=== PATIENT | male | born 1975 | race Caucasian/White ===

== ENCOUNTER 2017-04-01 06:43 | Emergency (ER) | payer OTHER ==
[2017-04-01 07:06] VITALS: BP 116/75; BMI 21.2
--- NOTE | 2017-04-01 07:18 | PDOC ---
History of Present Illness - General Chief Complaint: Substance Abuse Stated Complaint: DETOX ALCOHOL Time Seen by Provider: 04/01/17 07:17 History Source: Patient Exam Limitations: No Limitations - History of Present Illness Initial Comments: 04/01/17 08:21 Patient is a 41-year-old male with past medical history of alcohol abuse who presents to the emergency department today requesting rehabilitation. Patient states that he is sick of feeling "this way "and wants to detox. Patient states he has tried detox once before approximately 3 years ago. His last drink was last night where he drinks approximately 10 beers and/or mixed drinks. He is also complaining of some right-sided chest pain. He states that the pain has been there for 3 weeks and is worse when he takes a deep breath. The pain comes and goes. Patient admits to anxiety, tremors, diaphoresis, itching. Denies nausea, vomiting, shortness of breath, fevers, chills, recent illness and diarrhea. Admits to cocaine use. Smokes approximately 3 cigarettes a day. Denies IV drug use. Takes methadone currently. 04/01/17 08:40 Pt takes methadone through the [facility] in the [place]. Confirmed dosage of 65mg daily. He last recieved his dose of Methadone yesterday through their services. Spoke with nursing staff. Past History - Travel Traveled outside of the country in the last 30 days: No Close contact w/someone who was outside of country & ill: No - Past Medical History Allergies/Adverse Reactions: Allergies Allergy/AdvReac Type Severity Reaction Status Date / Time No Known Allergies Allergy Verified 04/01/17 12:56 Home Medications: Ambulatory Orders Citalopram Hydrobromide [Celexa -] 20 mg PO DAILY 04/01/17 Aripiprazole [Abilify -] 15 mg PO DAILY #30 tablet 04/02/17 Citalopram Hydrobromide [Celexa -] 20 mg PO DAILY #30 tablet 04/02/17 - Psycho/Social/Smoking Cessation Hx Suicidal Ideation: No Smoking History: Current every day smoker Number of Cigarettes Smoked Daily: 3 Information on smoking cessation initiated: Yes 'Breaking Loose' booklet given: 04/01/17 Hx Alcohol Use: Yes Drug/Substance Use Hx: Yes (XANAX,COCAINE) Substance Use Type: Alcohol, Cocaine Review of Systems - Review of Systems Constitutional: No: Fever, Malaise, Weakness Respiratory: No: Cough, Shortness of Breath, Wheezing Cardiac (ROS): Yes: Chest Pain (right sided). No: Lightheadedness, Palpitations , Syncope, Chest Tightness ABD/GI: No: Nausea, Vomiting *Physical Exam - Vital Signs Last Vital Signs Temp Pulse Resp BP Pulse Ox 98.5 F 71 17 116/75 100 04/01/17 07:04 04/01/17 07:04 04/01/17 07:04 04/01/17 07:04 04/01/17 07:04 - Physical Exam Comments: 04/01/17 07:53 GENERAL: Well developed, well nourished. AAOx2 person and place. In mild distress with tremors and diaphorisis. HEENT: Normocephalic, atraumatic. PERRLA, EOMI. No conjunctival pallor. Sclera are non- icteric. Moist mucous membranes. Oropharynx is clear. NECK: Supple. Full ROM. No JVD. Carotid pulses 2+ and symmetric, without bruits. No thyromegaly. No lymphadenopathy. CARDIOVASCULAR: Regular rate and rhythm. No murmurs, rubs, or gallops. Distal pulses are 2+ and symmetric. PULMONARY: No evidence of respiratory distress. Lungs clear to auscultation bilaterally. No wheezing, rales or rhonchi. ABDOMINAL: Soft. Non-tender. Non-distended. No rebound or guarding. No organomegaly. Normoactive bowel sounds. MUSCULOSKELETAL Normal range of motion at all joints. No bony deformities or tenderness. No CVA tenderness. EXTREMITIES: No cyanosis. No clubbing. No edema. No calf tenderness. SKIN: Warm and moist. Normal capillary refill. No rashes. No jaundice. NEUROLOGICAL: Alert, awake, appropriate. Cranial nerves 2-12 intact. No deficits to light touch and temperature in face, upper extremities and lower extremities. No motor deficits in the in face, upper extremities and lower extremities. Normoreflexic in the upper and lower extremities. Normal speech. Toes are down- going bilaterally. Gait is normal without ataxia. Moderately tremulous with arms extended PSYCHIATRIC: Very anxious, tremulous. Cooperative. Good eye contact. Appropriate mood and affect. ED Treatment Course - LABORATORY CBC & Chemistry Diagram: 04/01/17 08:50 04/01/17 08:50 Medical Decision Making - Medical Decision Making 04/01/17 08:02 Pt. is a 41 y/o male with PMH of alcohol abuse, who presents to the ED c/o withdrawals and is requesting rehab at this time. Patient is moderately tremulous and perspiring at this time. He states that he is very anxious. We will treat with Valium at this time. He is complaining of chest pain for three weeks with reproducable pain, less likely ACS d/t duration and provoking factors. Will still initate cardiac work up at this time. If lab work is okay and tremors have improved we will call over to [facility] for admission for detox. 1. CIWA score 2. Valium 3. CBC, CMP, mag, phosphorus, cardiac labs, UA, U tox, alcohol 4. banana bag, EKG, CXR 5. reevaluate 04/01/17 11:12 Confirmed pts home dose of methadone with his clinic. Home dose is 65mg. Will give 60mg now. Spoke with nursing staff at [facility]. Pt. reports still feeling anxious. Will give another 5mg of valium. Labs are within normal limits and pt. is hemodynamically stable. Will call [facility] to see if they have a rehab bed available. 04/01/17 11:25 [facility] has a bed available. Will discharge home at this time so pt can check himself into detox. *DC/Admit/Observation/Transfer Diagnosis at time of Disposition: Alcohol withdrawal Qualifiers: Complication of substance-induced condition: with unspecified complication Qualified Code(s): F10.239 - Alcohol dependence with withdrawal, unspecified - Discharge Dispostion Disposition: HOME Condition at time of disposition: Fair Admit: No - Referrals Referrals: Nathanael August MD [Staff Physician] - - Patient Instructions Printed Discharge Instructions: DI for Alcohol Abuse Additional Instructions: Avoid alcohol and illicit drug use. You were referred to [facility] for detox, they have a bed for you. Go there now as they are expecting you. Return to the ED if you have worsening symptoms, nausea, vomiting, or any changes in your symptoms. CIWA Score - CIWA Score Nausea/Vomitin-No Nausea/No Vomiting Muscle Tremors: 3 Anxiety: 6 Agitation: 4-Moderately Restless Paroxysmal Sweats: 4-Forehead w/Sweat Beads Orientation: 1-Uncertain about Date Tacttile Disturbances: 2-Mild Itch/Numbness/Burn Auditory Disturbances: 0-None Visual Disturbances: 0-None Headache: 0-None Present CIWA-Ar Total Score: 20
[2017-04-01] MEDS ORDERED: FOLIC ACID INJECTION - 1 MG, THIAMINE HCL 100 MG, MULTIVIT INJECTION ADULT 10 ML in SOD... IVPB ONE (07:39)
[2017-04-01] MEDS ORDERED: diazePAM CARPU-JECT 10 MG/2 ML DISP.SYRIN IVPUSH ONE ×2 (07:46→09:37)
[2017-04-01] MEDS ORDERED: diazePAM CARPU-JECT 10 MG/2 ML DISP.SYRIN ONE ×2 (08:38→10:17)
[2017-04-01] MEDS ORDERED: METHADONE HCL 10 MG TABLET PO ONE ×2 (08:41→08:58)
[2017-04-01] MEDS ORDERED: METHADONE HCL 10 MG TABLET ONE (08:57)
[2017-04-01 09:00] LABS: BASOPHIL 0.3 % (0-2.0); EOSINOPHIL 0.1 % (0-4.5); MCHC 33.1 g/dl (32.0-35.9); MEAN CELL VOLUME 90.6 fl (80-96); MEAN PLT VOLUME 9.4 fl (7.5-11.1); NEUTROPHILS 80.5 % (42.8-82.8); PLATELET COUNT 203 K/MM3 (134-434); RDW 13.6 % (11.9-15.9); WHITE BLOOD COUNT 5.9 K/mm3 (4.0-10.0)
[2017-04-01 09:28] LABS: URINE APPEARANCE CLEAR; URINE BILIRUBIN NEGATIVE (NEGATIVE); URINE BLOOD NEGATIVE (NEGATIVE); URINE COLOR LTYELLOW; URINE GLUCOSE (UA) NEGATIVE (NEGATIVE); URINE KETONE NEGATIVE (NEGATIVE); URINE LEUK ESTERASE NEGATIVE (NEGATIVE); URINE NITRITE NEGATIVE (NEGATIVE); URINE PROTEIN NEGATIVE (NEGATIVE); URINE UROBILINOGEN NEGATIVE mg/dL (0.2-1.0)
[2017-04-01 09:42] LABS: ALBUMIN 3.9 g/dl (3.4-5.0); ANION GAP 6 (8-16); BILIRUBIN,TOTAL 0.4 mg/dL (0.2-1.0); CALCIUM 9.1 mg/dL (8.5-10.1); CO2 31 mmol/L (21-32); CREATININE 0.7 mg/dL (0.7-1.3); GLUCOSE,RANDOM 110 mg/dL (74-106); PHOSPHOROUS 2.2 mg/dL (2.5-4.9); SGOT/AST 35 U/L (15-37); SGPT/ALT 28 U/L (12-78); TOT PROT 6.8 g/dl (6.4-8.2)
[2017-04-01 09:45] LABS: ALK PHOS 72 U/L (45-117); CPK 379 IU/L (39-308); TROPONIN I < 0.02 ng/ml (0.00-0.05)
--- NOTE | 2017-04-01 09:54 | PDOC ---
*Physical Exam - Vital Signs Last Vital Signs Temp Pulse Resp BP Pulse Ox 98.5 F 71 17 116/75 100 04/01/17 07:04 04/01/17 07:04 04/01/17 07:04 04/01/17 07:04 04/01/17 07:04 ED Treatment Course - LABORATORY CBC & Chemistry Diagram: 04/01/17 08:50 04/01/17 08:50 - ADDITIONAL ORDERS Additional order review: Laboratory Results 04/01/17 04/01/17 04/01/17 09:15 08:50 08:50 Sodium 139 Potassium 4.4 Chloride 102 Carbon Dioxide 31 Anion Gap 6 L BUN 8 Creatinine 0.7 Creat Clearance w eGFR > 60 Random Glucose 110 H Calcium 9.1 Phosphorus 2.2 L Magnesium 2.0 Total Bilirubin 0.4 AST 35 ALT 28 Alkaline Phosphatase 72 Creatine Kinase 379 H Creatine Kinase Index 0.4 CK-MB (CK-2) 1.707 Troponin I < 0.02 Total Protein 6.8 Albumin 3.9 Urine Color Ltyellow Urine Appearance Clear Urine pH 7.0 Urine Protein Negative Urine Glucose (UA) Negative Urine Ketones Negative Urine Blood Negative Urine Nitrite Negative Urine Bilirubin Negative Urine Urobilinogen Negative Ur Leukocyte Esterase Negative Alcohol, Quantitative < 5.0 04/01/17 08:50 RBC 4.47 MCV 90.6 MCHC 33.1 RDW 13.6 MPV 9.4 Neutrophils % 80.5 Lymphocytes % 13.0 Monocytes % 6.1 Eosinophils % 0.1 Basophils % 0.3 - Medications Given in the ED: ED Medications Discontinued Medications Generic Name Dose Route Start Last Admin Trade Name Zaneq PRN Reason Stop Dose Admin Diazepam 5 mg 04/01/17 07:46 04/01/17 08:53 Valium Injection - IVPUSH 04/01/17 07:47 5 mg ONCE ONE Administration Methadone HCl 65 mg 04/01/17 08:41 04/01/17 09:01 Dolophine - PO 04/01/17 08:42 Not Given ONCE ONE Methadone HCl 60 mg 04/01/17 08:58 04/01/17 09:01 Dolophine - PO 04/01/17 08:59 60 mg ONCE ONE Administration Medical Decision Making - Medical Decision Making 04/01/17 09:51 Patient seen and evaluated with the nurse practitioner. I agree with the overall evaluation, assessment, and management with the following summary of visit: 41-year-old male with history of alcohol dependence, on methadone maintenance presents with anxiety and tremors and symptoms of withdrawal, last EtOH intake was last night. No seizures. Tremulous, anxious seated in stretcher, vitals otherwise noted without tachycardia or hypertension Normal mental status 41-year-old male with alcohol withdrawal, hemodynamically stable. Requesting detox. We'll stabilize here with IV benzo Check labs, EKG Reassess, attempted transfer to rehabilitation/detox. *DC/Admit/Observation/Transfer Diagnosis at time of Disposition: Alcohol withdrawal syndrome Qualifiers: Complication of substance-induced condition: with unspecified complication Qualified Code(s): F10.239 - Alcohol dependence with withdrawal, unspecified - Discharge Dispostion Condition at time of disposition: Fair
[2017-04-01] MEDS ORDERED: NAPH,MB-DB/K PH,MBDB POWDER PACKET PO ONE (10:13)
[2017-04-01 10:56] VITALS: PULSE 78; TEMP 98.2
--- NOTE | 2017-04-01 17:26 | EKG ---
Test Reason : Blood Pressure : / mmHG Vent. Rate : 058 BPM Atrial Rate : 058 BPM P-R Int : 138 ms QRS Dur : 086 ms QT Int : 422 ms P-R-T Axes : 068 082 078 degrees QTc Int : 414 ms SINUS BRADYCARDIA NONSPECIFIC ST AND T WAVE ABNORMALITY NO PREVIOUS ECGS AVAILABLE REPEAT EKG IF CLINICALLY INDICATED Confirmed by CHARANJIT SHULTZ MD ([id number]) on 04/01/2017 5:26:42 PM Referred By: Confirmed By:CHARANJIT SHULTZ MD
[2017-04-02 20:09] LABS: URINE MARIJUANA THC POSITIVE ng/ml (CUTOFF=50)
== END 2017-04-01 10:56 | disposition home or self-care (01) ==
LOC: JER 06:43
PROC: 3E033NZ Introduction of Analgesics, Hypnotics, Sedatives into Peripheral Vein, Percutaneous Approach (ICD-10-PCS; principal; 2017-04-01)
PROC: 3E033GC Introduction of Other Therapeutic Substance into Peripheral Vein, Percutaneous Approach (ICD-10-PCS; 2017-04-01)
DX: F10.239 Alcohol dependence with withdrawal, unspecified (principal); F17.210 Nicotine dependence, cigarettes, uncomplicated
CPT/HCPCS: 36415; 71010-TC; 80053; 80307; 81003; 82553; 83735; 84100; 84484; 85025; 93005; 93010; 96365; 96375; 96376; 99282-25

== ENCOUNTER 2017-04-01 12:10 | Inpatient (IN) | payer OTHER ==
--- NOTE | 2017-04-01 15:47 | HP ---
CIWA Score - CIWA Score Nausea/Vomitin-Mild Nausea/No Vomiting Muscle Tremors: 4-Moderate,w/Arms Extend Anxiety: 3 Agitation: 4-Moderately Restless Paroxysmal Sweats: 3 Orientation: 0-Oriented Tacttile Disturbances: 0-None Auditory Disturbances: 0-None Visual Disturbances: 0-None Headache: 0-None Present CIWA-Ar Total Score: 15 Admission ROS BHS - HPI Chief Complaint: I am here to detox. Allergies/Adverse Reactions: Allergies Allergy/AdvReac Type Severity Reaction Status Date / Time No Known Allergies Allergy Verified 04/01/17 12:56 History of Present Illness: pt is a 41yr old male with a history of alcohol and benzodiazapine dependence seeking detox for treatment. Exam Limitations: No Limitations - Ebola screening Have you traveled outside of the country in the last 21 days: No Have you had contact with anyone from an Ebola affected area: No Have you been sick,other than usual withdrawal symptoms: No Do you have a fever: No - Review of Systems Constitutional: Chills, Diaphoresis, Loss of Appetite, Night Sweats, Changes in sleep EENT: reports: Tearing, Nose Congestion Respiratory: reports: No Symptoms reported Cardiac: reports: Syncope GI: reports: Nausea : reports: No Symptoms Reported Musculoskeletal: reports: Joint Pain, Muscle Pain Integumentary: reports: Flushing, Sweating Endocrine: reports: Excessive Sweating, Flushing, Intolerance to Cold, Intolerance to Heat Hematology: reports: No Symptoms Reported Psychiatric: reports: Judgement Intact, Mood/Affect Appropiate, Orientated x3, Agitated, Anxious Other Systems: Reviewed and Negative Patient History - Patient Medical History Hx Anemia: No Hx Asthma: No Hx Chronic Obstructive Pulmonary Disease (COPD): No Hx Cancer: No Hx Cardiac Disorders: No Hx Congestive Heart Failure: No Hx Hypertension: No Hx Hypercholesterolemia: No Hx Pacemaker: No HX Cerebrovascular Accident: No Hx Seizures: Yes (etoh and drug related. last 1 month ago) Hx Dementia: No Hx Diabetes: No Hx Gastrointestinal Disorders: No Hx Liver Disease: No Hx Genitourinary Disorders: No Hx Sexually Transmitted Disorders: No Hx Renal Disease (ESRD): No Hx Thyroid Disease: No Hx Human Immunodeficiency Virus (HIV): No (negative) Hx Hepatitis C: Yes (treatment recieved 10yrs ago) Hx Depression: Yes Hx Suicide Attempt: Yes (tried to hang himself 20 yrs ago./ denies any S/H ideation today) Hx Bipolar Disorder: No Hx Schizophrenia: No - Patient Surgical History Past Surgical History: Yes Hx Abdominal Surgery: Yes (liver biopsy 10 yrs ago.) Anesthesia Reaction: No - PPD History Previous Implant?: Yes Documented Results: Negative w/o proof Implanted On Prior [facility] Admission?: No PPD to be Administered?: Yes - Reproductive History Patient is a Female of Child Bearing Age (11 -55 yrs old): No - Smoking Cessation Smoking history: Current every day smoker Have you smoked in the past 12 months: Yes Aproximately how many cigarettes per day: 5 Hx Chewing Tobacco Use: No Initiated information on smoking cessation: Yes 'Breaking Loose' booklet given: 04/01/17 - Substance & Tx. History Hx Alcohol Use: Yes Hx Substance Use: Yes Substance Use Type: Alcohol, Cocaine, Marijuana, Tranquilizers Hx Substance Use Treatment: Yes (last detox [facility] 2month ago. ) - Substances Abused Alcohol Route: Oral Frequency: Daily Amount used: 10-20 beers Age of first use: 20 Date of Last Use: 03/31/17 Alprazolam (Xanax) Route: Oral Frequency: Daily Amount used: 4mg Age of first use: 35 Date of Last Use: 03/29/17 Marijuana/Hashish Route: Smoking Frequency: Daily Amount used: 1 joint Age of first use: 18 Date of Last Use: 03/25/17 Cocaine Route: Injection Frequency: Daily Amount used: $50-100 Age of first use: 21 Date of Last Use: 03/29/17 Family Disease History - Family Disease History Family History: Denies Admission Physical Exam [facility] - Vital Signs Vital Signs: Vital Signs - 24 hr 04/01/17 12:32 Temperature 98.5 F Pulse Rate 75 Respiratory 18 Rate Blood Pressure 122/78 - Physical General Appearance: Yes: Mild Distress, Moderate Distress, Tremorous, Irritable , Sweating, Anxious HEENTM: Yes: Hearing grossly Normal, Nasal Congestion, Rhinorrhea Respiratory: Yes: Lungs Clear, Normal Breath Sounds Neck: Yes: No masses,lesions,Nodules Breast: Yes: Within Normal Limits Cardiology: Yes: Regular Rhythm, Regular Rate, S1, S2 Abdominal: Yes: Normal Bowel Sounds, Non Tender, Soft Genitourinary: Yes: Within Normal Limits Back: Yes: Normal Inspection Musculoskeletal: Yes: full range of Motion, Back pain Extremities: Yes: Normal Capillary Refill, Normal Inspection, Tremors Neurological: Yes: Fully Oriented, Alert, Normal Response Integumentary: Yes: Normal Color, Diaphoresis Lymphatic: Yes: Within Normal Limits - Diagnostic (1) Alcohol dependence with uncomplicated withdrawal Current Visit: Yes Status: Chronic (2) Sedative, hypnotic or anxiolytic dependence with withdrawal, uncomplicated Current Visit: Yes Status: Chronic (3) Methadone maintenance therapy patient Current Visit: Yes Status: Chronic (4) Nicotine dependence Current Visit: Yes Status: Chronic Qualifiers: Nicotine product type: cigarettes Substance use status: uncomplicated Qualified Code(s): F17.210 - Nicotine dependence, cigarettes, uncomplicated Cleared for Admission [facility] - Detox or Rehab [facility] Level of Care: Medically Managed Detox Regimen/Protocol: Valium [facility] Breath Alcohol Content Breath Alcohol Content: 0 Urine Drug Screen - Results Drug Screen Negative: No Urine Drug Screen Results: THC-Marijuana, REHANA-Cocaine, BZO-Benzodiazepines, MTD- Methadone
[2017-04-01] MEDS ORDERED: diazePAM 5 MG TABLET PO ONE (15:48)
[2017-04-01] MEDS ORDERED: guaiFENesin/D-METHORPHAN HB 10 ML UNIT-DOSE CUPS PO PRN (15:48)
[2017-04-01] MEDS ORDERED: MAGNESIUM HYDROX 2400MG/30ML ORAL SUSPENSION 30 ML CUP PO PRN (15:48)
[2017-04-01] MEDS ORDERED: MENTHOL/PHENOL 1 EACH UD MM PRN (15:48)
[2017-04-01] MEDS ORDERED: MAG HYDROX/AL HYDROX/SIMETH 30 ML UNIT-DOSE CUP PO PRN (15:48)
[2017-04-01] MEDS ORDERED: LOPERAMIDE HCL 2 MG CAPSULE PO PRN (15:48)
[2017-04-01] MEDS ORDERED: MAGNESIUM CITRATE 300 ML BOTTLE PO PRN (15:48)
[2017-04-01] MEDS ORDERED: ACETAMINOPHEN 325 MG TABLET (FP) PO PRN (15:48)
[2017-04-01] MEDS ORDERED: P-EPHED 60MG/TRIPROLIDI 2.5MG TABLET PO PRN (15:48)
[2017-04-01] MEDS ORDERED: IBUPROFEN 400 MG TABLET (FP) PO PRN (15:48)
[2017-04-01] MEDS: diazePAM 5 MG TABLET PO SCH ×2 (17:09→22:30)
[2017-04-01] MEDS: hydrOXYzine PAMOATE 50 MG CAPSULE (FP) PO PRN (19:16)
[2017-04-01 22:18] LABS: URINE APPEARANCE CLEAR; URINE BILIRUBIN NEGATIVE (NEGATIVE); URINE BLOOD 1+ (NEGATIVE); URINE COLOR YELLOW; URINE GLUCOSE (UA) NEGATIVE (NEGATIVE); URINE KETONE NEGATIVE (NEGATIVE); URINE LEUK ESTERASE NEGATIVE (NEGATIVE); URINE NITRITE NEGATIVE (NEGATIVE); URINE PROTEIN NEGATIVE (NEGATIVE); URINE UROBILINOGEN NEGATIVE mg/dL (0.2-1.0)
[2017-04-01] MEDS: THIAMINE HCL 100 MG TABLET (FP) PO SCH (22:30)
[2017-04-01] MEDS: diphenhydrAMINE HCL 50 MG CAPSULE PO PRN (22:30)
[2017-04-01 23:00] LABS: URINE MUCUS RARE; URINE RBC <1 /hpf (0-3); URINE WBC 1 /hpf (3-5)
[2017-04-02] MEDS: diazePAM 5 MG TABLET PO PRN ×3 (04:16→16:51)
[2017-04-02] MEDS: diazePAM 5 MG TABLET PO SCH ×3 (05:20→22:25)
[2017-04-02] MEDS ORDERED: METHADONE HCL 40 MG DISPERSABLE TABLET PO SCH (07:30)
[2017-04-02] MEDS ORDERED: METHADONE HCL 10 MG TABLET ONE (07:35)
[2017-04-02] MEDS ORDERED: METHADONE HCL 5 MG TABLET ONE (07:36)
[2017-04-02] MEDS ORDERED: METHADONE HCL 40 MG DISPERSABLE TABLET ONE (07:36)
[2017-04-02] MEDS: METHADONE 40 MG, METHADONE 20 MG, METHADONE 5 MG PO SCH (07:37)
[2017-04-02 09:50] LABS: MCH 29.9 pg (25.7-33.7); MCHC 32.7 g/dl (32.0-35.9); MEAN CELL VOLUME 91.3 fl (80-96); MEAN PLT VOLUME 10.1 fl (7.5-11.1); PLATELET COUNT 191 K/MM3 (134-434); RDW 14.4 % (11.9-15.9); WHITE BLOOD COUNT 4.7 K/mm3 (4.0-10.0)
[2017-04-02] MEDS: PRENATAL VITAMINS W/ FOLIC ACID TABLET (FP) PO SCH (10:20)
[2017-04-02] MEDS: NICOTINE POLACRILEX 4 MG GUM BUC PRN ×2 (10:20→22:27)
[2017-04-02] MEDS: NICOTINE 21 MG/24 HOURS TOPICAL PATCH TD SCH (10:21)
--- NOTE | 2017-04-02 10:21 | PN ---
[facility] CIWA - CIWA Score Nausea/Vomitin-No Nausea/No Vomiting Muscle Tremors: 4-Moderate,w/Arms Extend Anxiety: 4-Mod. Anxious/Guarded Agitation: 4-Moderately Restless Paroxysmal Sweats: 1-Minimal Palms Moist Orientation: 0-Oriented Tacttile Disturbances: 3-Moderate Itch/Numb/Burn Auditory Disturbances: 0-None Visual Disturbances: 0-None Headache: 0-None Present CIWA-Ar Total Score: 16 S Progress Note (SOAP) Subjective: ANXIETY,TREMORS,SWEATS,INTERMITTENT SLEEP. Objective: 04/02/17 10:20 Vital Signs Temperature 98.1 F 04/02/17 09:31 Pulse Rate 118 H 04/02/17 09:31 Respiratory Rate 18 04/02/17 09:31 Blood Pressure 141/84 04/02/17 09:31 O2 Sat by Pulse Oximetry (%) Laboratory Last Values WBC 4.7 K/mm3 (4.0-10.0) 04/02/17 07:00 RBC 4.47 M/mm3 (4.00-5.60) 04/02/17 07:00 Hgb 13.3 GM/dL (11.7-16.9) 04/02/17 07:00 Hct 40.8 % (35.4-49) 04/02/17 07:00 MCV 91.3 fl (80-96) 04/02/17 07:00 MCH 29.9 pg (25.7-33.7) 04/02/17 07:00 MCHC 32.7 g/dl (32.0-35.9) 04/02/17 07:00 RDW 14.4 % (11.9-15.9) 04/02/17 07:00 Plt Count 191 K/MM3 (134-434) 04/02/17 07:00 MPV 10.1 fl (7.5-11.1) 04/02/17 07:00 Urine Color Yellow 04/01/17 21:57 Urine Appearance Clear 04/01/17 21:57 Urine pH 6.0 (5.0-8.0) 04/01/17 21:57 Ur Specific [place]vin 1.020 (1.005-1.025) 04/01/17 21:57 Urine Protein Negative (NEGATIVE) 04/01/17 21:57 Urine Glucose (UA) Negative (NEGATIVE) 04/01/17 21:57 Urine Ketones Negative (NEGATIVE) 04/01/17 21:57 Urine Blood 1+ (NEGATIVE) H 04/01/17 21:57 Urine Nitrite Negative (NEGATIVE) 04/01/17 21:57 Urine Bilirubin Negative (NEGATIVE) 04/01/17 21:57 Urine Urobilinogen Negative mg/dL (0.2-1.0) 04/01/17 21:57 Ur Leukocyte Esterase Negative (NEGATIVE) 04/01/17 21:57 Urine RBC <1 /hpf (0-3) 04/01/17 21:57 Urine WBC 1 /hpf (3-5) 04/01/17 21:57 Ur Epithelial Cells Rare /hpf (FEW) 04/01/17 21:57 Urine Mucus Rare 04/01/17 21:57 OTHER LAB RESULTS PENDING Assessment: 04/02/17 10:21 WITHDRAWAL SX Plan: CONTINUE DETOX
--- NOTE | 2017-04-02 10:46 | EKG ---
Test Reason : Blood Pressure : / mmHG Vent. Rate : 073 BPM Atrial Rate : 073 BPM P-R Int : 146 ms QRS Dur : 086 ms QT Int : 418 ms P-R-T Axes : 063 072 065 degrees QTc Int : 460 ms NORMAL SINUS RHYTHM NORMAL ECG WHEN COMPARED WITH ECG OF 01-APR-2017 07:58, QT HAS LENGTHENED Confirmed by CEZAR SANTIAGO, BENJAMIN ([id number]) on 04/02/2017 10:46:32 AM Referred By: Confirmed By:BENJAMIN ROBB MD
[2017-04-02 11:12] LABS: ALBUMIN 3.4 g/dl (3.4-5.0); ALK PHOS 59 U/L (45-117); ANION GAP 7 (8-16); BILIRUBIN,TOTAL 0.3 mg/dL (0.2-1.0); CALCIUM 9.1 mg/dL (8.5-10.1); CO2 32 mmol/L (21-32); CREATININE 0.7 mg/dL (0.7-1.3); GLUCOSE,RANDOM 75 mg/dL (74-106); SGOT/AST 28 U/L (15-37); SGPT/ALT 28 U/L (12-78); TOT PROT 5.8 g/dl (6.4-8.2)
[2017-04-02] MEDS: hydrOXYzine PAMOATE 50 MG CAPSULE (FP) PO PRN ×2 (15:29→20:54)
--- NOTE | 2017-04-02 16:08 | CONSULT ---
[facility] Psychiatric Consult - Data Date of interview: 04/02/17 Admission source: [facility] Identifying data: Readmission to [facility] for this 41 y/o male seeking detox treatment on for alcohol,cocaine,xanax and marihuana dependence.Patient is single,a father of one,domiciled ([facility] setting),unemployed and supported on welfare. Substance Abuse History: Patient contfirms this report as an accurate account of his adictions. Smoking Cessation. Smoking history: Current every day smoker. Have you smoked in the past 12 months: Yes. Aproximately how many cigarettes per day: 5. Hx Chewing Tobacco Use: No. Initiated information on smoking cessation: Yes. 'Breaking Loose' booklet given: 04/01/17. - Substance & Tx. History. Hx Alcohol Use: Yes. Hx Substance Use: Yes. Substance Use Type : Alcohol, Cocaine, Marijuana, Tranquilizers. Hx Substance Use Treatment: Yes ( last detox [facility] 2month ago. ). - Substances Abused. Alcohol. Route: Oral. Frequency: Daily. Amount used: 10-20 beers. Age of first use: 20. Date of Last Use: 03/31/17. Alprazolam (Xanax). Route: Oral. Frequency: Daily. Amount used: 4mg. Age of first use: 35. Date of Last Use: 03/29/17. * * Marijuana/Hashish. Route: Smoking. Frequency: Daily. Amount used: 1 joint. Age of first use: 18. Date of Last Use: 03/25/17. Cocaine. Route: Injection. Frequency: Daily. Amount used: $50-100. Age of first use: 21. Date of Last Use: 03/29/17 Medical History: Hepatitis C and a remote history of withdrawal-related seizures. Psychiatric History: Patient admits to " no less than five " psychiatric hospitalizations.Known to [facility] and [facility]Diagnosed with MDD.Mr Vines indicates follow up at [facility] (MMTP = 65 mg of methadone daily).Maintenance medications consist of celexa 20 mg/day + abilify 15 mg/day.Reportedly taken three days ago.Patient reports a history of suicide attempt via hanging (20 years ago). Physical/Sexual Abuse/Trauma History: No reported history of abuse. Additional Comment: Urine Drug Screen Results: THC-Marijuana, REHANA-Cocaine, BZO- Benzodiazepines, MTD-Methadone.Noted. Mental Status Exam - Mental Status Exam Alert and Oriented to: Time, Place, Person Cognitive Function: Good Patient Appearance: Unkempt, Disheveled Mood: Nervous, Withdrawn, Anxious Affect: Mood Congruent Patient Behavior: Fatigued, Appropriate, Cooperative Speech Pattern: Clear Voice Loudness: Normal Thought Process: Intact, Goal Oriented Thought Disorder: Not Present Hallucinations: Denies Suicidal Ideation: Denies Homicidal Ideation: Denies Insight/Judgement: Poor Sleep: Poorly, Difficulty falling asleep Appetite: Good Muscle strength/Tone: Normal Gait/Station: Normal Psychiatric Findings - Problem List ([place] 1, 2,3) (1) Alcohol dependence with uncomplicated withdrawal Status: Acute (2) Nicotine dependence Status: Chronic Qualifiers: Nicotine product type: cigarettes Substance use status: in withdrawal Qualified Code(s): F17.213 - Nicotine dependence, cigarettes, with withdrawal (3) Sedative, hypnotic or anxiolytic dependence with withdrawal, uncomplicated Status: Acute (4) Opioid dependence on agonist therapy Status: Chronic (5) Substance induced mood disorder Status: Acute (6) MDD (major depressive disorder) Status: Chronic Qualifiers: Major depression recurrence: recurrent Active/Remission status: remission status unspecified Qualified Code(s): F33.9 - Major depressive disorder, recurrent, unspecified (7) Insomnia Status: Acute Qualifiers: Insomnia type: unspecified Qualified Code(s): G47.00 - Insomnia, unspecified - Initial Treatment Plan Initial Treatment Plan: Psychoeducation.Detoxification.Medications : celexa 20 mg po daily + abilify 15 mg po hs.Side effects/benefits are discussed with the apteint.He agrees with this plan of care.Observation.
[2017-04-02] MEDS: ARIPiprazole 15 MG TABLET PO SCH (22:25)
[2017-04-02] MEDS: THIAMINE HCL 100 MG TABLET (FP) PO SCH (22:25)
[2017-04-03] MEDS: diazePAM 5 MG TABLET PO PRN ×4 (02:47→17:33)
[2017-04-03] MEDS ORDERED: METHADONE HCL 10 MG TABLET ONE (04:55)
[2017-04-03] MEDS ORDERED: METHADONE HCL 5 MG TABLET ONE (04:56)
[2017-04-03] MEDS ORDERED: METHADONE HCL 40 MG DISPERSABLE TABLET ONE (04:56)
[2017-04-03] MEDS: METHADONE 40 MG, METHADONE 20 MG, METHADONE 5 MG PO SCH (05:46)
[2017-04-03] MEDS: NICOTINE POLACRILEX 4 MG GUM BUC PRN (07:12)
[2017-04-03] MEDS: diazePAM 5 MG TABLET PO SCH ×2 (10:25→22:37)
[2017-04-03] MEDS: NICOTINE 21 MG/24 HOURS TOPICAL PATCH TD SCH (10:25)
[2017-04-03] MEDS: PRENATAL VITAMINS W/ FOLIC ACID TABLET (FP) PO SCH (10:25)
[2017-04-03] MEDS: CITALOPRAM HYDROBROMIDE 20 MG TABLET (FP) PO SCH (10:25)
--- NOTE | 2017-04-03 10:57 | PN ---
[facility] CIWA - CIWA Score Nausea/Vomitin-No Nausea/No Vomiting Muscle Tremors: 4-Moderate,w/Arms Extend Anxiety: 4-Mod. Anxious/Guarded Agitation: 4-Moderately Restless Paroxysmal Sweats: 3 Orientation: 0-Oriented Tacttile Disturbances: 3-Moderate Itch/Numb/Burn Auditory Disturbances: 0-None Visual Disturbances: 0-None Headache: 0-None Present CIWA-Ar Total Score: 18 S Progress Note (SOAP) Subjective: ANXIETY,IRRITABILITY,DRENCHING SWEATS,INTERMITTENT SLEEP. Objective: 04/03/17 10:57 Vital Signs Temperature 98.0 F 04/03/17 09:39 Pulse Rate 80 04/03/17 09:39 Respiratory Rate 18 04/03/17 09:39 Blood Pressure 117/78 04/03/17 09:39 O2 Sat by Pulse Oximetry (%) Laboratory Last Values WBC 4.7 K/mm3 (4.0-10.0) 04/02/17 07:00 RBC 4.47 M/mm3 (4.00-5.60) 04/02/17 07:00 Hgb 13.3 GM/dL (11.7-16.9) 04/02/17 07:00 Hct 40.8 % (35.4-49) 04/02/17 07:00 MCV 91.3 fl (80-96) 04/02/17 07:00 MCH 29.9 pg (25.7-33.7) 04/02/17 07:00 MCHC 32.7 g/dl (32.0-35.9) 04/02/17 07:00 RDW 14.4 % (11.9-15.9) 04/02/17 07:00 Plt Count 191 K/MM3 (134-434) 04/02/17 07:00 MPV 10.1 fl (7.5-11.1) 04/02/17 07:00 Sodium 144 mmol/L (136-145) 04/02/17 07:00 Potassium 4.3 mmol/L (3.5-5.1) 04/02/17 07:00 Chloride 105 mmol/L (98-107) 04/02/17 07:00 Carbon Dioxide 32 mmol/L (21-32) 04/02/17 07:00 Anion Gap 7 (8-16) L 04/02/17 07:00 BUN 11 mg/dL (7-18) D 04/02/17 07:00 Creatinine 0.7 mg/dL (0.7-1.3) 04/02/17 07:00 Creat Clearance w eGFR > 60 (>60) 04/02/17 07:00 Random Glucose 75 mg/dL (74-106) D 04/02/17 07:00 Calcium 9.1 mg/dL (8.5-10.1) 04/02/17 07:00 Total Bilirubin 0.3 mg/dL (0.2-1.0) D 04/02/17 07:00 AST 28 U/L (15-37) 04/02/17 07:00 ALT 28 U/L (12-78) 04/02/17 07:00 Alkaline Phosphatase 59 U/L (45-117) 04/02/17 07:00 Total Protein 5.8 g/dl (6.4-8.2) L 04/02/17 07:00 Albumin 3.4 g/dl (3.4-5.0) 04/02/17 07:00 Urine Color Yellow 04/01/17 21:57 Urine Appearance Clear 04/01/17 21:57 Urine pH 6.0 (5.0-8.0) 04/01/17 21:57 Ur Specific [place] 1.020 (1.005-1.025) 04/01/17 21:57 Urine Protein Negative (NEGATIVE) 04/01/17 21:57 Urine Glucose (UA) Negative (NEGATIVE) 04/01/17 21:57 Urine Ketones Negative (NEGATIVE) 04/01/17 21:57 Urine Blood 1+ (NEGATIVE) H 04/01/17 21:57 Urine Nitrite Negative (NEGATIVE) 04/01/17 21:57 Urine Bilirubin Negative (NEGATIVE) 04/01/17 21:57 Urine Urobilinogen Negative mg/dL (0.2-1.0) 04/01/17 21:57 Ur Leukocyte Esterase Negative (NEGATIVE) 04/01/17 21:57 Urine RBC <1 /hpf (0-3) 04/01/17 21:57 Urine WBC 1 /hpf (3-5) 04/01/17 21:57 Ur Epithelial Cells Rare /hpf (FEW) 04/01/17 21:57 Urine Mucus Rare 04/01/17 21:57 RPR Titer Nonreactive (NONREACTIVE) 04/02/17 07:00 Assessment: 04/03/17 10:57 WITHDRAWAL SX Plan: CONTINUE DETOX
[2017-04-03] MEDS: THIAMINE HCL 100 MG TABLET (FP) PO SCH (22:35)
[2017-04-03] MEDS: ARIPiprazole 15 MG TABLET PO SCH (22:38)
[2017-04-04] MEDS ORDERED: METHADONE HCL 10 MG TABLET ONE (05:21)
[2017-04-04] MEDS ORDERED: METHADONE HCL 40 MG DISPERSABLE TABLET ONE (05:22)
[2017-04-04] MEDS ORDERED: METHADONE HCL 5 MG TABLET ONE (05:22)
[2017-04-04] MEDS: METHADONE 40 MG, METHADONE 20 MG, METHADONE 5 MG PO SCH (05:39)
[2017-04-04] MEDS: diazePAM 5 MG TABLET PO PRN ×2 (05:40→14:44)
[2017-04-04] MEDS: NICOTINE 21 MG/24 HOURS TOPICAL PATCH TD SCH (10:25)
[2017-04-04] MEDS: diazePAM 5 MG TABLET PO SCH ×2 (10:26→22:35)
[2017-04-04] MEDS: PRENATAL VITAMINS W/ FOLIC ACID TABLET (FP) PO SCH (10:26)
[2017-04-04] MEDS: CITALOPRAM HYDROBROMIDE 20 MG TABLET (FP) PO SCH (10:26)
[2017-04-04] MEDS: NICOTINE POLACRILEX 4 MG GUM BUC PRN ×2 (10:28→14:44)
--- NOTE | 2017-04-04 11:13 | PN ---
[facility] Progress Note (SOAP) Subjective: ANXIETY, IRRITABILITY,RESTLESSNESS, INTERMITTENT SLEEP. Objective: 04/04/17 11:12 Vital Signs Temperature 98.4 F 04/04/17 10:25 Pulse Rate 76 04/04/17 10:25 Respiratory Rate 18 04/04/17 10:25 Blood Pressure 126/74 04/04/17 10:25 O2 Sat by Pulse Oximetry (%) Laboratory Last Values WBC 4.7 K/mm3 (4.0-10.0) 04/02/17 07:00 RBC 4.47 M/mm3 (4.00-5.60) 04/02/17 07:00 Hgb 13.3 GM/dL (11.7-16.9) 04/02/17 07:00 Hct 40.8 % (35.4-49) 04/02/17 07:00 MCV 91.3 fl (80-96) 04/02/17 07:00 MCH 29.9 pg (25.7-33.7) 04/02/17 07:00 MCHC 32.7 g/dl (32.0-35.9) 04/02/17 07:00 RDW 14.4 % (11.9-15.9) 04/02/17 07:00 Plt Count 191 K/MM3 (134-434) 04/02/17 07:00 MPV 10.1 fl (7.5-11.1) 04/02/17 07:00 Sodium 144 mmol/L (136-145) 04/02/17 07:00 Potassium 4.3 mmol/L (3.5-5.1) 04/02/17 07:00 Chloride 105 mmol/L (98-107) 04/02/17 07:00 Carbon Dioxide 32 mmol/L (21-32) 04/02/17 07:00 Anion Gap 7 (8-16) L 04/02/17 07:00 BUN 11 mg/dL (7-18) D 04/02/17 07:00 Creatinine 0.7 mg/dL (0.7-1.3) 04/02/17 07:00 Creat Clearance w eGFR > 60 (>60) 04/02/17 07:00 Random Glucose 75 mg/dL (74-106) D 04/02/17 07:00 Calcium 9.1 mg/dL (8.5-10.1) 04/02/17 07:00 Total Bilirubin 0.3 mg/dL (0.2-1.0) D 04/02/17 07:00 AST 28 U/L (15-37) 04/02/17 07:00 ALT 28 U/L (12-78) 04/02/17 07:00 Alkaline Phosphatase 59 U/L (45-117) 04/02/17 07:00 Total Protein 5.8 g/dl (6.4-8.2) L 04/02/17 07:00 Albumin 3.4 g/dl (3.4-5.0) 04/02/17 07:00 Urine Color Yellow 04/01/17 21:57 Urine Appearance Clear 04/01/17 21:57 Urine pH 6.0 (5.0-8.0) 04/01/17 21:57 Ur Specific [place] 1.020 (1.005-1.025) 04/01/17 21:57 Urine Protein Negative (NEGATIVE) 04/01/17 21:57 Urine Glucose (UA) Negative (NEGATIVE) 04/01/17 21:57 Urine Ketones Negative (NEGATIVE) 04/01/17 21:57 Urine Blood 1+ (NEGATIVE) H 04/01/17 21:57 Urine Nitrite Negative (NEGATIVE) 04/01/17 21:57 Urine Bilirubin Negative (NEGATIVE) 04/01/17 21:57 Urine Urobilinogen Negative mg/dL (0.2-1.0) 04/01/17 21:57 Ur Leukocyte Esterase Negative (NEGATIVE) 04/01/17 21:57 Urine RBC <1 /hpf (0-3) 04/01/17 21:57 Urine WBC 1 /hpf (3-5) 04/01/17 21:57 Ur Epithelial Cells Rare /hpf (FEW) 04/01/17 21:57 Urine Mucus Rare 04/01/17 21:57 RPR Titer Nonreactive (NONREACTIVE) 04/02/17 07:00 Assessment: 04/04/17 11:12 WITHDRAWAL SX Plan: CONTINUE DETOX
[2017-04-04] MEDS: ARIPiprazole 15 MG TABLET PO SCH (22:35)
[2017-04-04] MEDS: THIAMINE HCL 100 MG TABLET (FP) PO SCH (22:35)
[2017-04-04] MEDS: diphenhydrAMINE HCL 50 MG CAPSULE PO PRN (22:35)
[2017-04-05] MEDS ORDERED: METHADONE HCL 5 MG TABLET ONE (04:37)
[2017-04-05] MEDS ORDERED: METHADONE HCL 10 MG TABLET ONE (04:37)
[2017-04-05] MEDS ORDERED: METHADONE HCL 40 MG DISPERSABLE TABLET ONE (04:38)
[2017-04-05] MEDS: METHADONE 40 MG, METHADONE 20 MG, METHADONE 5 MG PO SCH (06:02)
[2017-04-05] MEDS ORDERED: diazePAM 5 MG TABLET PO SCH (10:00)
[2017-04-05 10:34] VITALS: BP 116/79; PULSE 73; TEMP 97
[2017-04-05] MEDS: NICOTINE POLACRILEX 4 MG GUM BUC PRN ×2 (10:36→12:36)
[2017-04-05] MEDS: NICOTINE 21 MG/24 HOURS TOPICAL PATCH TD SCH (10:36)
[2017-04-05] MEDS: PRENATAL VITAMINS W/ FOLIC ACID TABLET (FP) PO SCH (10:36)
[2017-04-05] MEDS: CITALOPRAM HYDROBROMIDE 20 MG TABLET (FP) PO SCH (10:36)
--- NOTE | 2017-04-05 14:14 | DS ---
[facility] Detox Discharge Summary Admission Date: 04/01/17 Discharge Date: 04/05/17 - History Present History: Alcohol Dependence, MMTP Additional Comments: PATIENT GOING TO [facility] FOR AFTERCARE. PATIENT WAS DISCHARGED FROM DETOX UNIT IN STABLE MEDICAL CONDITION. Pertinent Past History: MMTP, Insomnia, Depression, History of Seizures (ETOH, Drug-Related), Hep C. - Physical Exam Results Vital Signs: Vital Signs Temperature 97 F L 04/05/17 10:33 Pulse Rate 73 04/05/17 10:33 Respiratory Rate 16 04/05/17 10:33 Blood Pressure 116/79 04/05/17 10:33 O2 Sat by Pulse Oximetry (%) Pertinent Admission Physical Exam Findings: WITHDRAWAL SYMPTOMS. Laboratory Tests 04/01/17 04/02/17 04/02/17 21:57 07:00 07:00 WBC 4.7 RBC 4.47 Hgb 13.3 Hct 40.8 MCV 91.3 MCH 29.9 MCHC 32.7 RDW 14.4 Plt Count 191 MPV 10.1 Sodium 144 Potassium 4.3 Chloride 105 Carbon Dioxide 32 Anion Gap 7 L BUN 11 D Creatinine 0.7 Creat Clearance w eGFR > 60 Random Glucose 75 D Calcium 9.1 Total Bilirubin 0.3 D AST 28 ALT 28 Alkaline Phosphatase 59 Total Protein 5.8 L Albumin 3.4 Urine Color Yellow Urine Appearance Clear Urine pH 6.0 Ur Specific [place] 1.020 Urine Protein Negative Urine Glucose (UA) Negative Urine Ketones Negative Urine Blood 1+ H Urine Nitrite Negative Urine Bilirubin Negative Urine Urobilinogen Negative Ur Leukocyte Esterase Negative Urine RBC <1 Urine WBC 1 Ur Epithelial Cells Rare Urine Mucus Rare RPR Titer 04/02/17 07:00 WBC RBC Hgb Hct MCV MCH MCHC RDW Plt Count MPV Sodium Potassium Chloride Carbon Dioxide Anion Gap BUN Creatinine Creat Clearance w eGFR Random Glucose Calcium Total Bilirubin AST ALT Alkaline Phosphatase Total Protein Albumin Urine Color Urine Appearance Urine pH Ur Specific [place] Urine Protein Urine Glucose (UA) Urine Ketones Urine Blood Urine Nitrite Urine Bilirubin Urine Urobilinogen Ur Leukocyte Esterase Urine RBC Urine WBC Ur Epithelial Cells Urine Mucus RPR Titer Nonreactive LABS NOTED. - Treatment Hospital Course: Detox Protocol Followed, Detoxed Safely, Responded well, Discharged Condition Good, Rehab Referral Accepted Patient has Accepted a Rehab Referral to: [facility]. - Medication Discharge Medications: Ambulatory Orders Aripiprazole [Abilify -] 15 mg PO DAILY #30 tablet 04/02/17 Citalopram Hydrobromide [Celexa -] 20 mg PO DAILY #30 tablet 04/02/17 - Diagnosis (1) Alcohol dependence with uncomplicated withdrawal Status: Acute (2) Insomnia Status: Acute Qualifiers: Insomnia type: unspecified Qualified Code(s): G47.00 - Insomnia, unspecified (3) Sedative, hypnotic or anxiolytic dependence with withdrawal, uncomplicated Status: Acute (4) Methadone maintenance therapy patient Status: Chronic (5) Nicotine dependence Status: Chronic Qualifiers: Nicotine product type: cigarettes Substance use status: in withdrawal Qualified Code(s): F17.213 - Nicotine dependence, cigarettes, with withdrawal (6) Opioid dependence on agonist therapy Status: Chronic (7) Substance induced mood disorder Status: Acute (8) MDD (major depressive disorder) Status: Chronic Qualifiers: Major depression recurrence: recurrent Active/Remission status: remission status unspecified Qualified Code(s): F33.9 - Major depressive disorder, recurrent, unspecified - AMA Did Patient Leave Against Medical Advice: No
== END 2017-04-05 12:40 | disposition other institution (70) | DRG 773 ==
LOC: YASAS 12:10 → Y3N 15:48
PROVIDERS: ADMIT Internal Medicine Addiction Medicine; ATTEND Internal Medicine Addiction Medicine
PROC: HZ2ZZZZ Detoxification Services for Substance Abuse Treatment (ICD-10-PCS; principal; 2017-04-01)
DX: F10.230 Alcohol dependence with withdrawal, uncomplicated (principal); F13.230 Sedative, hypnotic or anxiolytic dependence with withdrawal, uncomplicated; F11.20 Opioid dependence, uncomplicated; F17.213 Nicotine dependence, cigarettes, with withdrawal; F19.24 Other psychoactive substance dependence with psychoactive substance-induced mood disorder; F33.9 Major depressive disorder, recurrent, unspecified; G47.00 Insomnia, unspecified; B18.2 Chronic viral hepatitis C; Z86.69 Personal history of other diseases of the nervous system and sense organs; Z91.5 Personal history of self-harm
CPT/HCPCS: 36415; 71020-TC; 80053; 81003; 81015; 85027; 86593; 93005; 93010

== ENCOUNTER 2017-04-05 13:02 | Inpatient (IN) | payer OTHER ==
--- NOTE | 2017-04-05 12:04 | HP ---
[facility] Rehab Assess/Revision - Admission History Admitted to Rehab from: [facility] - Findings Detox History & Physical reviewed: Yes Concur with findings: Yes Comments/Additional Findings: PRIOR TO DISCHARGE FROM DETOX UNIT, PATIENT'S MEDICAL / MEDICATION HISTORY REVIEWED. PATIENT DISCHARGED FROM DETOX UNIT TO BE TAKEN TO REHAB UNIT IN STABLE MEDICAL CONDITION. PER RECOMMENDATION OF RADIOLOGIST JANA GLASS MD, PATIENT SCHEDULED TO HAVE F/U CXR ON 04/07/2017 WITH [facility] (INITIAL CXR DONE DUE TO HISTORY OF POSITIVE PPD).
--- NOTE | 2017-04-05 12:06 | PN ---
[facility] Progress Note Note: While admitted for detox, pt. had CXR done for History of Positive PPD. As per recommendation of Radiologist Laurel Klein MD, patient scheduled to have follow- up CXR on 04/07/2017 with [facility] for confirmation of results of CXR done while pt. admitted for Detox. Princess Casanova NP
[2017-04-05] MEDS ORDERED: MAGNESIUM CITRATE 300 ML BOTTLE PO PRN (13:56)
[2017-04-05] MEDS ORDERED: P-EPHED 60MG/TRIPROLIDI 2.5MG TABLET PO PRN (13:56)
[2017-04-05] MEDS ORDERED: MAG HYDROX/AL HYDROX/SIMETH 30 ML UNIT-DOSE CUP PO PRN (13:56)
[2017-04-05] MEDS ORDERED: MENTHOL/PHENOL 1 EACH UD MM PRN (13:56)
[2017-04-05] MEDS ORDERED: guaiFENesin/D-METHORPHAN HB 10 ML UNIT-DOSE CUPS PO PRN (13:56)
[2017-04-05] MEDS ORDERED: LOPERAMIDE HCL 2 MG CAPSULE PO PRN (13:56)
--- NOTE | 2017-04-05 14:06 | DS ---
[facility] Detox Discharge Summary Admission Date: 04/05/17 Discharge Date: 04/05/17 - History Present History: Alcohol Dependence, Sedative Dependence, MMTP Additional Comments: PATIENT GOING TO [facility] FOR AFTERCARE. PATIENT DISCHARGED FROM DETOX UNIT IN STABLE MEDICAL CONDITION. Pertinent Past History: History of Seizures (ETOH / Drug-Related), Hep C, Depression, Insomnia, MMTP. - Physical Exam Results Vital Signs: Vital Signs Temperature 98.6 F 04/05/17 13:28 Pulse Rate 72 04/05/17 13:28 Respiratory Rate 18 04/05/17 13:28 Blood Pressure 121/74 04/05/17 13:28 O2 Sat by Pulse Oximetry (%) Pertinent Admission Physical Exam Findings: WITHDRAWAL SYMPTOMS. DETOX ADMISSION LABS NOTED. - Treatment Hospital Course: Detox Protocol Followed, Detoxed Safely, Responded well, Discharged Condition Good, Rehab Referral Accepted Patient has Accepted a Rehab Referral to: [facility]. - Medication Discharge Medications: Ambulatory Orders Aripiprazole [Abilify -] 15 mg PO DAILY #30 tablet 04/02/17 Citalopram Hydrobromide [Celexa -] 20 mg PO DAILY #30 tablet 04/02/17 - Diagnosis (1) Alcohol dependence with uncomplicated withdrawal Current Visit: Yes Status: Acute (2) Insomnia Current Visit: Yes Status: Acute Qualifiers: Insomnia type: unspecified Qualified Code(s): G47.00 - Insomnia, unspecified (3) Nicotine dependence Current Visit: Yes Status: Chronic Qualifiers: Nicotine product type: cigarettes Substance use status: in withdrawal Qualified Code(s): F17.213 - Nicotine dependence, cigarettes, with withdrawal (4) Opioid dependence on agonist therapy Current Visit: Yes Status: Chronic (5) Sedative, hypnotic or anxiolytic dependence with withdrawal, uncomplicated Current Visit: Yes Status: Acute (6) Substance induced mood disorder Current Visit: No Status: Acute (7) MDD (major depressive disorder) Current Visit: No Status: Chronic Qualifiers: Major depression recurrence: recurrent Active/Remission status: remission status unspecified Qualified Code(s): F33.9 - Major depressive disorder, recurrent, unspecified (8) Methadone maintenance therapy patient Current Visit: Yes Status: Chronic - AMA Did Patient Leave Against Medical Advice: No
[2017-04-05] MEDS: ARIPiprazole 15 MG TABLET PO SCH (21:25)
[2017-04-05] MEDS: diphenhydrAMINE HCL 50 MG CAPSULE PO PRN (21:25)
[2017-04-05] MEDS: THIAMINE HCL 100 MG TABLET (FP) PO SCH (21:25)
[2017-04-05] MEDS: IBUPROFEN 400 MG TABLET (FP) PO PRN (21:26)
[2017-04-06] MEDS ORDERED: METHADONE HCL 10 MG TABLET ONE (04:10)
[2017-04-06] MEDS ORDERED: METHADONE HCL 40 MG DISPERSABLE TABLET ONE (04:10)
[2017-04-06] MEDS ORDERED: METHADONE HCL 5 MG TABLET ONE (04:10)
[2017-04-06] MEDS ORDERED: METHADONE HCL 10 MG TABLET PO SCH (06:00)
[2017-04-06] MEDS: METHADONE 40 MG, METHADONE 20 MG, METHADONE 5 MG PO SCH (06:28)
[2017-04-06] MEDS: PRENATAL VITAMINS W/ FOLIC ACID TABLET (FP) PO SCH (09:54)
[2017-04-06] MEDS: hydrOXYzine PAMOATE 50 MG CAPSULE (FP) PO PRN ×2 (09:54→17:11)
[2017-04-06] MEDS: CITALOPRAM HYDROBROMIDE 20 MG TABLET (FP) PO SCH (09:54)
[2017-04-06] MEDS: NICOTINE 21 MG/24 HOURS TOPICAL PATCH TD SCH (09:54)
[2017-04-06] MEDS: NICOTINE POLACRILEX 4 MG GUM BUC PRN ×2 (09:55→17:11)
[2017-04-06] MEDS: ARIPiprazole 15 MG TABLET PO SCH (21:24)
[2017-04-06] MEDS: THIAMINE HCL 100 MG TABLET (FP) PO SCH (21:24)
[2017-04-06] MEDS: diphenhydrAMINE HCL 50 MG CAPSULE PO PRN (21:24)
[2017-04-07] MEDS ORDERED: METHADONE HCL 5 MG TABLET ONE (05:13)
[2017-04-07] MEDS ORDERED: METHADONE HCL 10 MG TABLET ONE (05:14)
[2017-04-07] MEDS ORDERED: METHADONE HCL 40 MG DISPERSABLE TABLET ONE (05:14)
[2017-04-07] MEDS: METHADONE 40 MG, METHADONE 20 MG, METHADONE 5 MG PO SCH (06:18)
[2017-04-07] MEDS: PRENATAL VITAMINS W/ FOLIC ACID TABLET (FP) PO SCH (10:21)
[2017-04-07] MEDS: CITALOPRAM HYDROBROMIDE 20 MG TABLET (FP) PO SCH (10:21)
[2017-04-07] MEDS: NICOTINE 21 MG/24 HOURS TOPICAL PATCH TD SCH (10:21)
--- NOTE | 2017-04-07 14:38 | HP ---
Psychiatrist Admission - Data Date of interview: 04/07/17 Identifying data: 41 y/o male who is a single father of one, he is domiciled ([facility] setting) , unemployed and supported on welfare. Medical History: Hep C, h/o withdrawal seizures , smokes cigarettes 5 a day. On MMTP 65 mg/daily. Psychiatric History: Patient reports diagnosed with Major Depressive Disorder and following with a psychiatrist at his [facility] program. First psychiatric treatment at age of 25 was admitted to [facility] for 4 months to address severe depression, reports several psychiatric hospitalizations with most recent "years ago" and currently on Celexa 20 mg/ daily, Abilify 15 mg daily, one suicidal attempt 20 years ago (tried to hang self). Past treatment with Zoloft, Effexor. Physical/Sexual Abuse/Trauma History: Denies history of sexual, physical and verbal abuse. Additional Comment: The longest period of abstienence 4 years. Vital Signs: Vital Signs - 24 hr 04/07/17 04/07/17 04/07/17 00:30 03:30 06:30 Temperature 97.9 F Pulse Rate 70 Respiratory 18 18 18 Rate Blood Pressure 116/71 Allergies/Adverse Reactions: Allergies Allergy/AdvReac Type Severity Reaction Status Date / Time No Known Allergies Allergy Verified 04/05/17 13:29 Date of last physical exam: 04/01/17 Concur with the findings of this exam: Yes - Substance Abuse/Tx History Hx Alcohol Use: Yes (daily 10-20 cans of beer, liqor daily use) Hx Substance Use: Yes Substance Use Type: Cocaine (started at age of 20, daily use for $50 and 100), Marijuana (2-3 times a week), Tranquilizers (Xanax 2 mg to 4 mg x 2-3 week ) Hx Substance Use Treatment: Yes ([facility] rehab. 15 times at [facility] amd 4 outpatient rehabs.) - Admission Criteria Previous failed treatment: Yes Poor recovery environment: Yes Comorbidities: Yes Lacks judgement: Yes Mental Status Exam - Mental Status Exam Alert and Oriented to: Time, Place, Person Cognitive Function: Good Patient Appearance: Unkempt, Disheveled Mood: Sad, Anxious Affect: Appropriate, Mood Congruent Patient Behavior: Cooperative Speech Pattern: Clear, Appropriate Voice Loudness: Normal Thought Process: Intact, Goal Oriented Thought Disorder: Not Present Hallucinations: Denies Suicidal Ideation: Denies Homicidal Ideation: Denies Insight/Judgement: Fair Sleep: Fair Appetite: Weight loss (30 lbs in 6 months) Muscle strength/Tone: Normal Gait/Station: Normal Psychiatric Findings - Problem List ([place] 1, 2,3) (1) Methadone maintenance therapy patient Current Visit: Yes Status: Chronic (2) Nicotine dependence Current Visit: Yes Status: Chronic Qualifiers: Nicotine product type: cigarettes Substance use status: in withdrawal Qualified Code(s): F17.213 - Nicotine dependence, cigarettes, with withdrawal (3) MDD (major depressive disorder) Current Visit: No Status: Chronic Qualifiers: Major depression recurrence: recurrent Active/Remission status: remission status unspecified Qualified Code(s): F33.9 - Major depressive disorder, recurrent, unspecified (4) Alcohol dependence Current Visit: Yes Status: Acute (5) Cocaine dependence Current Visit: Yes Status: Acute (6) Cannabis dependence Current Visit: Yes Status: Acute (7) Sedative dependence Current Visit: Yes Status: Acute - Initial Treatment Plan Initial Treatment Plan: will continue his current medicatiuons, monitor progress as needed.
[2017-04-07] MEDS: IBUPROFEN 400 MG TABLET (FP) PO PRN (21:29)
[2017-04-07] MEDS: ARIPiprazole 15 MG TABLET PO SCH (21:30)
[2017-04-07] MEDS: THIAMINE HCL 100 MG TABLET (FP) PO SCH (21:30)
[2017-04-07] MEDS: diphenhydrAMINE HCL 50 MG CAPSULE PO PRN (21:30)
[2017-04-07] MEDS: NICOTINE POLACRILEX 4 MG GUM BUC PRN (21:31)
[2017-04-08] MEDS ORDERED: METHADONE HCL 5 MG TABLET ONE (03:18)
[2017-04-08] MEDS ORDERED: METHADONE HCL 10 MG TABLET ONE (03:19)
[2017-04-08] MEDS ORDERED: METHADONE HCL 40 MG DISPERSABLE TABLET ONE (03:19)
[2017-04-08] MEDS: METHADONE 40 MG, METHADONE 20 MG, METHADONE 5 MG PO SCH (06:20)
[2017-04-08] MEDS: hydrOXYzine PAMOATE 50 MG CAPSULE (FP) PO PRN (10:02)
[2017-04-08] MEDS: PRENATAL VITAMINS W/ FOLIC ACID TABLET (FP) PO SCH (10:02)
[2017-04-08] MEDS: NICOTINE 21 MG/24 HOURS TOPICAL PATCH TD SCH (10:03)
[2017-04-08] MEDS: CITALOPRAM HYDROBROMIDE 20 MG TABLET (FP) PO SCH (10:03)
[2017-04-08] MEDS: NICOTINE POLACRILEX 4 MG GUM BUC PRN ×3 (10:04→21:24)
[2017-04-08] MEDS: diphenhydrAMINE HCL 50 MG CAPSULE PO PRN (21:23)
[2017-04-08] MEDS: ARIPiprazole 15 MG TABLET PO SCH (21:23)
[2017-04-08] MEDS: THIAMINE HCL 100 MG TABLET (FP) PO SCH (21:23)
[2017-04-09] MEDS ORDERED: METHADONE HCL 5 MG TABLET ONE (05:23)
[2017-04-09] MEDS ORDERED: METHADONE HCL 40 MG DISPERSABLE TABLET ONE (05:24)
[2017-04-09] MEDS ORDERED: METHADONE HCL 10 MG TABLET ONE (05:24)
[2017-04-09] MEDS: METHADONE 40 MG, METHADONE 20 MG, METHADONE 5 MG PO SCH (06:25)
[2017-04-09] MEDS: hydrOXYzine PAMOATE 50 MG CAPSULE (FP) PO PRN ×2 (10:05→18:38)
[2017-04-09] MEDS: NICOTINE 21 MG/24 HOURS TOPICAL PATCH TD SCH (10:06)
[2017-04-09] MEDS: CITALOPRAM HYDROBROMIDE 20 MG TABLET (FP) PO SCH (10:06)
[2017-04-09] MEDS: NICOTINE POLACRILEX 4 MG GUM BUC PRN ×3 (10:06→18:38)
[2017-04-09] MEDS: PRENATAL VITAMINS W/ FOLIC ACID TABLET (FP) PO SCH (10:06)
[2017-04-09] MEDS: THIAMINE HCL 100 MG TABLET (FP) PO SCH (21:17)
[2017-04-09] MEDS: ARIPiprazole 15 MG TABLET PO SCH (21:17)
[2017-04-09] MEDS: diphenhydrAMINE HCL 50 MG CAPSULE PO PRN (21:18)
[2017-04-10] MEDS ORDERED: METHADONE HCL 10 MG TABLET ONE (05:21)
[2017-04-10] MEDS ORDERED: METHADONE HCL 5 MG TABLET ONE (05:21)
[2017-04-10] MEDS ORDERED: METHADONE HCL 40 MG DISPERSABLE TABLET ONE (05:21)
[2017-04-10] MEDS: NICOTINE POLACRILEX 4 MG GUM BUC PRN ×3 (06:01→21:14)
[2017-04-10] MEDS: METHADONE 40 MG, METHADONE 20 MG, METHADONE 5 MG PO SCH (06:01)
[2017-04-10] MEDS: CITALOPRAM HYDROBROMIDE 20 MG TABLET (FP) PO SCH (10:30)
[2017-04-10] MEDS: hydrOXYzine PAMOATE 50 MG CAPSULE (FP) PO PRN (10:30)
[2017-04-10] MEDS: PRENATAL VITAMINS W/ FOLIC ACID TABLET (FP) PO SCH (10:30)
[2017-04-10] MEDS: NICOTINE 21 MG/24 HOURS TOPICAL PATCH TD SCH (10:31)
[2017-04-10] MEDS: THIAMINE HCL 100 MG TABLET (FP) PO SCH (21:13)
[2017-04-10] MEDS: diphenhydrAMINE HCL 50 MG CAPSULE PO PRN (21:13)
[2017-04-10] MEDS: ARIPiprazole 15 MG TABLET PO SCH (21:13)
[2017-04-11] MEDS ORDERED: METHADONE HCL 5 MG TABLET ONE (03:18)
[2017-04-11] MEDS ORDERED: METHADONE HCL 10 MG TABLET ONE (03:19)
[2017-04-11] MEDS ORDERED: METHADONE HCL 40 MG DISPERSABLE TABLET ONE (03:19)
[2017-04-11] MEDS: METHADONE 40 MG, METHADONE 20 MG, METHADONE 5 MG PO SCH (06:16)
[2017-04-11] MEDS: PRENATAL VITAMINS W/ FOLIC ACID TABLET (FP) PO SCH (10:03)
[2017-04-11] MEDS: CITALOPRAM HYDROBROMIDE 20 MG TABLET (FP) PO SCH (10:03)
[2017-04-11] MEDS: NICOTINE 21 MG/24 HOURS TOPICAL PATCH TD SCH (10:04)
[2017-04-11] MEDS: NICOTINE POLACRILEX 4 MG GUM BUC PRN ×3 (10:04→21:27)
[2017-04-11] MEDS: hydrOXYzine PAMOATE 50 MG CAPSULE (FP) PO PRN (16:38)
[2017-04-11] MEDS: ARIPiprazole 15 MG TABLET PO SCH (21:26)
[2017-04-11] MEDS: diphenhydrAMINE HCL 50 MG CAPSULE PO PRN (21:26)
[2017-04-11] MEDS: THIAMINE HCL 100 MG TABLET (FP) PO SCH (21:26)
[2017-04-12] MEDS ORDERED: METHADONE HCL 40 MG DISPERSABLE TABLET ONE (03:22)
[2017-04-12] MEDS ORDERED: METHADONE HCL 10 MG TABLET ONE (03:22)
[2017-04-12] MEDS ORDERED: METHADONE HCL 5 MG TABLET ONE (03:22)
[2017-04-12] MEDS: METHADONE 40 MG, METHADONE 20 MG, METHADONE 5 MG PO SCH (06:38)
[2017-04-12] MEDS: NICOTINE POLACRILEX 4 MG GUM BUC PRN ×4 (06:41→21:36)
[2017-04-12] MEDS: PRENATAL VITAMINS W/ FOLIC ACID TABLET (FP) PO SCH (10:00)
[2017-04-12] MEDS: NICOTINE 21 MG/24 HOURS TOPICAL PATCH TD SCH (10:00)
[2017-04-12] MEDS: CITALOPRAM HYDROBROMIDE 20 MG TABLET (FP) PO SCH (10:00)
[2017-04-12] MEDS: hydrOXYzine PAMOATE 50 MG CAPSULE (FP) PO PRN ×2 (10:00→19:38)
[2017-04-12] MEDS: THIAMINE HCL 100 MG TABLET (FP) PO SCH (21:35)
[2017-04-12] MEDS: ARIPiprazole 15 MG TABLET PO SCH (21:35)
[2017-04-12] MEDS: diphenhydrAMINE HCL 50 MG CAPSULE PO PRN (21:35)
[2017-04-13] MEDS ORDERED: METHADONE HCL 5 MG TABLET ONE (06:40)
[2017-04-13] MEDS ORDERED: METHADONE HCL 10 MG TABLET ONE (06:41)
[2017-04-13] MEDS ORDERED: METHADONE HCL 40 MG DISPERSABLE TABLET ONE (06:41)
[2017-04-13] MEDS: METHADONE 40 MG, METHADONE 20 MG, METHADONE 5 MG PO SCH (06:41)
[2017-04-13] MEDS: NICOTINE POLACRILEX 4 MG GUM BUC PRN ×3 (06:49→21:25)
[2017-04-13] MEDS: CITALOPRAM HYDROBROMIDE 20 MG TABLET (FP) PO SCH (10:33)
[2017-04-13] MEDS: NICOTINE 21 MG/24 HOURS TOPICAL PATCH TD SCH (10:33)
[2017-04-13] MEDS: PRENATAL VITAMINS W/ FOLIC ACID TABLET (FP) PO SCH (10:33)
[2017-04-13] MEDS: hydrOXYzine PAMOATE 50 MG CAPSULE (FP) PO PRN (17:00)
[2017-04-13] MEDS: THIAMINE HCL 100 MG TABLET (FP) PO SCH (21:24)
[2017-04-13] MEDS: ARIPiprazole 15 MG TABLET PO SCH (21:24)
[2017-04-13] MEDS: diphenhydrAMINE HCL 50 MG CAPSULE PO PRN (21:24)
[2017-04-14] MEDS: IBUPROFEN 400 MG TABLET (FP) PO PRN ×2 (01:17→16:37)
[2017-04-14] MEDS: hydrOXYzine PAMOATE 50 MG CAPSULE (FP) PO PRN ×3 (01:17→18:29)
[2017-04-14] MEDS ORDERED: METHADONE HCL 5 MG TABLET ONE (03:05)
[2017-04-14] MEDS ORDERED: METHADONE HCL 10 MG TABLET ONE (03:05)
[2017-04-14] MEDS ORDERED: METHADONE HCL 40 MG DISPERSABLE TABLET ONE (03:06)
[2017-04-14] MEDS: METHADONE 40 MG, METHADONE 20 MG, METHADONE 5 MG PO SCH (06:10)
[2017-04-14] MEDS: NICOTINE POLACRILEX 4 MG GUM BUC PRN ×5 (06:12→20:21)
[2017-04-14] MEDS: MAGNESIUM HYDROX 2400MG/30ML ORAL SUSPENSION 30 ML CUP PO PRN (06:41)
[2017-04-14] MEDS: CITALOPRAM HYDROBROMIDE 20 MG TABLET (FP) PO SCH (10:04)
[2017-04-14] MEDS: PRENATAL VITAMINS W/ FOLIC ACID TABLET (FP) PO SCH (10:04)
[2017-04-14] MEDS: NICOTINE 21 MG/24 HOURS TOPICAL PATCH TD SCH (10:05)
[2017-04-14] MEDS: ACETAMINOPHEN 325 MG TABLET (FP) PO PRN (11:51)
[2017-04-14] MEDS: ARIPiprazole 15 MG TABLET PO SCH (21:21)
[2017-04-14] MEDS: diphenhydrAMINE HCL 50 MG CAPSULE PO PRN (21:22)
[2017-04-14] MEDS: THIAMINE HCL 100 MG TABLET (FP) PO SCH (21:22)
[2017-04-15] MEDS: IBUPROFEN 400 MG TABLET (FP) PO PRN (03:05)
[2017-04-15] MEDS: hydrOXYzine PAMOATE 50 MG CAPSULE (FP) PO PRN ×2 (03:05→10:16)
[2017-04-15] MEDS: NICOTINE POLACRILEX 4 MG GUM BUC PRN ×4 (03:07→21:24)
[2017-04-15] MEDS ORDERED: METHADONE HCL 5 MG TABLET ONE (03:14)
[2017-04-15] MEDS ORDERED: METHADONE HCL 10 MG TABLET ONE (03:14)
[2017-04-15] MEDS ORDERED: METHADONE HCL 40 MG DISPERSABLE TABLET ONE (03:15)
[2017-04-15] MEDS: ACETAMINOPHEN 325 MG TABLET (FP) PO PRN ×2 (04:56→20:13)
[2017-04-15] MEDS: METHADONE 40 MG, METHADONE 20 MG, METHADONE 5 MG PO SCH (05:42)
[2017-04-15] MEDS: MAGNESIUM HYDROX 2400MG/30ML ORAL SUSPENSION 30 ML CUP PO PRN (06:30)
[2017-04-15] MEDS: CITALOPRAM HYDROBROMIDE 20 MG TABLET (FP) PO SCH (10:16)
[2017-04-15] MEDS: PRENATAL VITAMINS W/ FOLIC ACID TABLET (FP) PO SCH (10:16)
[2017-04-15] MEDS: NICOTINE 21 MG/24 HOURS TOPICAL PATCH TD SCH (10:17)
[2017-04-15] MEDS ORDERED: FLU VACCINE QUAD 60 MCG/0.5 ML (MDV 17-18) IM ONE (12:00)
[2017-04-15] MEDS: THIAMINE HCL 100 MG TABLET (FP) PO SCH (21:22)
[2017-04-15] MEDS: ARIPiprazole 15 MG TABLET PO SCH (21:22)
[2017-04-15] MEDS: DOCUSATE SODIUM 100 MG CAPSULE (FP) PO SCH (21:22)
[2017-04-15] MEDS: diphenhydrAMINE HCL 50 MG CAPSULE PO PRN (21:23)
[2017-04-16] MEDS: hydrOXYzine PAMOATE 50 MG CAPSULE (FP) PO PRN ×2 (01:56→10:18)
[2017-04-16] MEDS: IBUPROFEN 400 MG TABLET (FP) PO PRN ×3 (02:17→21:32)
[2017-04-16] MEDS: NICOTINE POLACRILEX 4 MG GUM BUC PRN ×5 (02:49→21:33)
[2017-04-16] MEDS ORDERED: METHADONE HCL 10 MG TABLET ONE (03:13)
[2017-04-16] MEDS ORDERED: METHADONE HCL 5 MG TABLET ONE (03:13)
[2017-04-16] MEDS ORDERED: METHADONE HCL 40 MG DISPERSABLE TABLET ONE (03:14)
[2017-04-16] MEDS: METHADONE 40 MG, METHADONE 20 MG, METHADONE 5 MG PO SCH (06:07)
[2017-04-16] MEDS: ACETAMINOPHEN 325 MG TABLET (FP) PO PRN (06:44)
[2017-04-16] MEDS: CITALOPRAM HYDROBROMIDE 20 MG TABLET (FP) PO SCH (10:18)
[2017-04-16] MEDS: PRENATAL VITAMINS W/ FOLIC ACID TABLET (FP) PO SCH (10:18)
[2017-04-16] MEDS: NICOTINE 21 MG/24 HOURS TOPICAL PATCH TD SCH (10:19)
[2017-04-16] MEDS: MAGNESIUM HYDROX 2400MG/30ML ORAL SUSPENSION 30 ML CUP PO PRN (11:06)
[2017-04-16] MEDS: DOCUSATE SODIUM 100 MG CAPSULE (FP) PO SCH (21:32)
[2017-04-16] MEDS: THIAMINE HCL 100 MG TABLET (FP) PO SCH (21:32)
[2017-04-16] MEDS: ARIPiprazole 15 MG TABLET PO SCH (21:32)
[2017-04-16] MEDS: SENNOSIDES 8.6MG TABLET (FP) PO PRN (21:32)
[2017-04-16] MEDS: diphenhydrAMINE HCL 50 MG CAPSULE PO PRN (21:34)
[2017-04-17] MEDS: hydrOXYzine PAMOATE 50 MG CAPSULE (FP) PO PRN ×2 (00:33→10:18)
[2017-04-17] MEDS: diphenhydrAMINE HCL 50 MG CAPSULE PO PRN (00:46)
[2017-04-17] MEDS ORDERED: METHADONE HCL 40 MG DISPERSABLE TABLET ONE (03:20)
[2017-04-17] MEDS ORDERED: METHADONE HCL 5 MG TABLET ONE (03:20)
[2017-04-17] MEDS ORDERED: METHADONE HCL 10 MG TABLET ONE (03:20)
[2017-04-17] MEDS: METHADONE 40 MG, METHADONE 20 MG, METHADONE 5 MG PO SCH (06:10)
[2017-04-17] MEDS: NICOTINE POLACRILEX 4 MG GUM BUC PRN ×4 (06:29→21:29)
[2017-04-17] MEDS: ACETAMINOPHEN 325 MG TABLET (FP) PO PRN ×2 (07:00→16:48)
[2017-04-17] MEDS: NICOTINE 21 MG/24 HOURS TOPICAL PATCH TD SCH (10:16)
[2017-04-17] MEDS: PRENATAL VITAMINS W/ FOLIC ACID TABLET (FP) PO SCH (10:17)
[2017-04-17] MEDS: CITALOPRAM HYDROBROMIDE 20 MG TABLET (FP) PO SCH (10:17)
[2017-04-17] MEDS: MAGNESIUM HYDROX 2400MG/30ML ORAL SUSPENSION 30 ML CUP PO PRN (10:22)
--- NOTE | 2017-04-17 14:05 | PN ---
Psychiatric Progress Note Vital Signs: Vital Signs Period Temp Pulse Resp BP Sys/Gleason Pulse Ox Last 24 Hr 98.3 F 72 16-18 123/76 Date of Session: 04/17/17 Chief Complaint:: insomnia HPI: Patient is addressing alcohol, cocaine, nicotine dependence comorbid MDD. ROS: WNL Current Medications: Active Medications Generic Name Dose Route Start Last Admin Trade Name Freq PRN Reason Stop Dose Admin Acetaminophen 650 mg 04/05/17 13:56 04/17/17 07:00 Tylenol - PO 650 mg Q4H PRN Administration FEVER OR PAIN Al Hydroxide/Mg Hydroxide 30 ml 04/05/17 13:56 Mylanta Oral Suspension - PO Q6H PRN DYSPEPSIA Aripiprazole 15 mg 04/05/17 22:00 04/16/17 21:32 Abilify PO 15 mg HS FREIDA Administration Citalopram Hydrobromide 20 mg 04/06/17 10:00 04/17/17 10:17 Celexa - PO 20 mg DAILY FREIDA Administration Diphenhydramine HCl 50 mg 04/05/17 22:00 04/17/17 00:46 Benadryl - PO 50 mg HSMR1 PRN Administration FOR ITCHING Docusate Sodium 300 mg 04/15/17 22:00 04/16/17 21:32 Colace - PO 300 mg HS FREIDA Administration Eucalyptus/Menthol/Phenol/Sorbitol 1 each 04/05/17 13:56 Cepastat Lozenge - MM Q4H PRN SORE THROAT Guaifenesin 10 ml 04/05/17 13:56 Robitussin Dm - PO Q6H PRN COUGH Hydroxyzine Pamoate 50 mg 04/05/17 13:56 04/17/17 10:18 Vistaril - PO 50 mg Q4H PRN Administration AGITATION Ibuprofen 400 mg 04/05/17 13:56 04/16/17 21:32 Motrin - PO 400 mg Q6H PRN Administration PAIN Loperamide HCl 4 mg 04/05/17 13:56 Imodium - PO Q6H PRN DIARRHEA Magnesium Hydroxide 30 ml 04/05/17 13:56 04/17/17 10:22 Milk Of Magnesia - PO 30 ml DAILY PRN Administration CONSTIPATION Methadone HCl 40 mg/ Methadone 65 mg 04/13/17 06:00 04/17/17 06:10 HCl 20 mg/ Methadone HCl 5 mg PO 65 mg DAILY@0600 FREIDA Administration Nicotine 21 mg 04/06/17 10:00 04/17/17 10:16 Nicoderm Patch - TD 21 mg DAILY FREIDA Administration Nicotine Polacrilex 4 mg 04/05/17 13:56 04/17/17 12:48 Nicorette Gum - BUC 4 mg Q2H PRN Administration NICOTINE REPLACEMENT RX Multivit/Folic Acid/Iron 1 tab 04/06/17 10:00 04/17/17 10:17 Vitamins (Sjr) - PO 1 tab DAILY FREIDA Administration Pseudoephedrine/Triprolidine 1 combo 04/05/17 13:56 Actifed - PO TID PRN NASAL CONGESTION Senna 2 tab 04/15/17 10:46 04/16/17 21:32 Senna - PO 2 tab HS PRN Administration CONSTIPATION Thiamine HCl 100 mg 04/05/17 22:00 04/16/17 21:32 Vitamin B1 - PO 100 mg HS FREIDA Administration Medication(s) Change(s): Belsomra 10 mg po hs Current Side Effect: No Lab tests ordered: No Lab tests reviewed: Yes Provider note:: Patient generally adjusted well to the unit , attends and participates in groups, he c/o insomnia, sleep is interrupted and unfreshful, he feels tired next day, Benadryl no effective, discussed indications and properties of Belsomra with the patient, medication was recommende, patient agreed to start, will continue to monitor progress. Total face to face time:: 15 Mental Status Exam - Mental Status Exam Alert and Oriented to: Time, Place, Person Cognitive Function: Good Patient Appearance: Well Groomed Mood: Anxious Affect: Appropriate, Mood Congruent Patient Behavior: Appropriate, Cooperative Speech Pattern: Clear, Appropriate Voice Loudness: Normal Thought Process: Intact, Goal Oriented Thought Disorder: Not Present Hallucinations: Denies Suicidal Ideation: Denies Homicidal Ideation: Denies Insight/Judgement: Fair Sleep: Poorly, Difficulty falling asleep Appetite: Fair Muscle strength/Tone: Normal Gait/Station: Normal Psychiatric Treatment Plan - Problem List (1) Methadone maintenance therapy patient Current Visit: Yes (2) Nicotine dependence Current Visit: Yes Qualifiers: Nicotine product type: cigarettes Substance use status: in withdrawal Qualified Code(s): F17.213 - Nicotine dependence, cigarettes, with withdrawal (3) MDD (major depressive disorder) Current Visit: No Qualifiers: Major depression recurrence: recurrent Active/Remission status: remission status unspecified Qualified Code(s): F33.9 - Major depressive disorder, recurrent, unspecified (4) Alcohol dependence Current Visit: Yes (5) Cocaine dependence Current Visit: Yes (6) Cannabis dependence Current Visit: Yes (7) Sedative dependence Current Visit: Yes
[2017-04-17] MEDS: INDOMETHACIN 50 MG CAPSULE PO SCH ×2 (15:11→21:28)
[2017-04-17] MEDS: PANTOPRAZOLE 40 MG TABLET (FP) PO SCH (15:12)
[2017-04-17] MEDS: DOCUSATE SODIUM 100 MG CAPSULE (FP) PO SCH (21:28)
[2017-04-17] MEDS: ARIPiprazole 15 MG TABLET PO SCH (21:28)
[2017-04-17] MEDS: THIAMINE HCL 100 MG TABLET (FP) PO SCH (21:28)
[2017-04-17] MEDS: SUVOREXANT 10 MG TABLET PO SCH (21:28)
[2017-04-18] MEDS: NICOTINE POLACRILEX 4 MG GUM BUC PRN ×5 (03:02→21:23)
[2017-04-18] MEDS ORDERED: METHADONE HCL 10 MG TABLET ONE (03:08)
[2017-04-18] MEDS ORDERED: METHADONE HCL 5 MG TABLET ONE (03:08)
[2017-04-18] MEDS ORDERED: METHADONE HCL 40 MG DISPERSABLE TABLET ONE (03:08)
[2017-04-18] MEDS: INDOMETHACIN 50 MG CAPSULE PO SCH ×3 (06:02→21:30)
[2017-04-18] MEDS: METHADONE 40 MG, METHADONE 20 MG, METHADONE 5 MG PO SCH (06:02)
[2017-04-18] MEDS: PANTOPRAZOLE 40 MG TABLET (FP) PO SCH (10:15)
[2017-04-18] MEDS: NICOTINE 21 MG/24 HOURS TOPICAL PATCH TD SCH (10:15)
[2017-04-18] MEDS: PRENATAL VITAMINS W/ FOLIC ACID TABLET (FP) PO SCH (10:15)
[2017-04-18] MEDS: CITALOPRAM HYDROBROMIDE 20 MG TABLET (FP) PO SCH (10:15)
[2017-04-18] MEDS: hydrOXYzine PAMOATE 50 MG CAPSULE (FP) PO PRN (12:04)
[2017-04-18] MEDS: MAGNESIUM HYDROX 2400MG/30ML ORAL SUSPENSION 30 ML CUP PO PRN (14:06)
[2017-04-18] MEDS: DOCUSATE SODIUM 100 MG CAPSULE (FP) PO SCH (21:22)
[2017-04-18] MEDS: SUVOREXANT 10 MG TABLET PO SCH (21:22)
[2017-04-18] MEDS: ARIPiprazole 15 MG TABLET PO SCH (21:22)
[2017-04-18] MEDS: THIAMINE HCL 100 MG TABLET (FP) PO SCH (21:22)
[2017-04-19] MEDS: ACETAMINOPHEN 325 MG TABLET (FP) PO PRN (00:15)
[2017-04-19] MEDS: hydrOXYzine PAMOATE 50 MG CAPSULE (FP) PO PRN ×2 (00:15→23:25)
[2017-04-19] MEDS ORDERED: METHADONE HCL 5 MG TABLET ONE (04:11)
[2017-04-19] MEDS ORDERED: METHADONE HCL 10 MG TABLET ONE (04:12)
[2017-04-19] MEDS ORDERED: METHADONE HCL 40 MG DISPERSABLE TABLET ONE (04:12)
[2017-04-19] MEDS: INDOMETHACIN 50 MG CAPSULE PO SCH ×3 (06:04→21:14)
[2017-04-19] MEDS: METHADONE 40 MG, METHADONE 20 MG, METHADONE 5 MG PO SCH (06:04)
[2017-04-19] MEDS: NICOTINE POLACRILEX 4 MG GUM BUC PRN ×5 (06:22→21:15)
[2017-04-19] MEDS: PANTOPRAZOLE 40 MG TABLET (FP) PO SCH (10:24)
[2017-04-19] MEDS: CITALOPRAM HYDROBROMIDE 20 MG TABLET (FP) PO SCH (10:24)
[2017-04-19] MEDS: NICOTINE 21 MG/24 HOURS TOPICAL PATCH TD SCH (10:24)
[2017-04-19] MEDS: PRENATAL VITAMINS W/ FOLIC ACID TABLET (FP) PO SCH (10:24)
[2017-04-19] MEDS: MAGNESIUM HYDROX 2400MG/30ML ORAL SUSPENSION 30 ML CUP PO PRN (10:26)
[2017-04-19] MEDS: SENNOSIDES 8.6MG TABLET (FP) PO PRN (12:26)
[2017-04-19] MEDS: DOCUSATE SODIUM 100 MG CAPSULE (FP) PO SCH (21:14)
[2017-04-19] MEDS: ARIPiprazole 15 MG TABLET PO SCH (21:14)
[2017-04-19] MEDS: SUVOREXANT 10 MG TABLET PO SCH (21:14)
[2017-04-19] MEDS: THIAMINE HCL 100 MG TABLET (FP) PO SCH (21:15)
[2017-04-20] MEDS: NICOTINE POLACRILEX 4 MG GUM BUC PRN ×6 (00:12→21:27)
[2017-04-20] MEDS: ACETAMINOPHEN 325 MG TABLET (FP) PO PRN ×2 (00:29→10:02)
[2017-04-20] MEDS ORDERED: METHADONE HCL 40 MG DISPERSABLE TABLET ONE (04:07)
[2017-04-20] MEDS ORDERED: METHADONE HCL 10 MG TABLET ONE (04:07)
[2017-04-20] MEDS ORDERED: METHADONE HCL 5 MG TABLET ONE (04:07)
[2017-04-20] MEDS: METHADONE 40 MG, METHADONE 20 MG, METHADONE 5 MG PO SCH (05:55)
[2017-04-20] MEDS: INDOMETHACIN 50 MG CAPSULE PO SCH ×3 (05:56→21:26)
[2017-04-20] MEDS: hydrOXYzine PAMOATE 50 MG CAPSULE (FP) PO PRN (06:50)
[2017-04-20] MEDS: NICOTINE 21 MG/24 HOURS TOPICAL PATCH TD SCH (10:00)
[2017-04-20] MEDS: CITALOPRAM HYDROBROMIDE 20 MG TABLET (FP) PO SCH (10:03)
[2017-04-20] MEDS: MAGNESIUM HYDROX 2400MG/30ML ORAL SUSPENSION 30 ML CUP PO PRN (10:03)
[2017-04-20] MEDS: PRENATAL VITAMINS W/ FOLIC ACID TABLET (FP) PO SCH (10:03)
[2017-04-20] MEDS: PANTOPRAZOLE 40 MG TABLET (FP) PO SCH (10:03)
[2017-04-20] MEDS: SUVOREXANT 10 MG TABLET PO SCH (21:25)
[2017-04-20] MEDS: ARIPiprazole 15 MG TABLET PO SCH (21:25)
[2017-04-20] MEDS: DOCUSATE SODIUM 100 MG CAPSULE (FP) PO SCH (21:25)
[2017-04-20] MEDS: THIAMINE HCL 100 MG TABLET (FP) PO SCH (21:25)
[2017-04-21] MEDS: hydrOXYzine PAMOATE 50 MG CAPSULE (FP) PO PRN ×3 (00:24→14:34)
[2017-04-21] MEDS ORDERED: METHADONE HCL 10 MG TABLET ONE (03:05)
[2017-04-21] MEDS ORDERED: METHADONE HCL 5 MG TABLET ONE (03:05)
[2017-04-21] MEDS ORDERED: METHADONE HCL 40 MG DISPERSABLE TABLET ONE (03:05)
[2017-04-21] MEDS: METHADONE 40 MG, METHADONE 20 MG, METHADONE 5 MG PO SCH (05:40)
[2017-04-21] MEDS: INDOMETHACIN 50 MG CAPSULE PO SCH ×3 (05:40→21:24)
[2017-04-21] MEDS: NICOTINE POLACRILEX 4 MG GUM BUC PRN ×4 (05:42→18:07)
[2017-04-21 06:34] VITALS: TEMP 98.2
[2017-04-21] MEDS: CITALOPRAM HYDROBROMIDE 20 MG TABLET (FP) PO SCH (10:27)
[2017-04-21] MEDS: PRENATAL VITAMINS W/ FOLIC ACID TABLET (FP) PO SCH (10:27)
[2017-04-21] MEDS: PANTOPRAZOLE 40 MG TABLET (FP) PO SCH (10:27)
[2017-04-21] MEDS: NICOTINE 21 MG/24 HOURS TOPICAL PATCH TD SCH (10:28)
[2017-04-21] MEDS ORDERED: METHADONE HCL 40 MG DISPERSABLE TABLET PO SCH (13:17)
[2017-04-21] MEDS: DOCUSATE SODIUM 100 MG CAPSULE (FP) PO SCH (21:24)
[2017-04-21] MEDS: THIAMINE HCL 100 MG TABLET (FP) PO SCH (21:24)
[2017-04-21] MEDS: ARIPiprazole 15 MG TABLET PO SCH (21:25)
[2017-04-21] MEDS: SUVOREXANT 10 MG TABLET PO SCH (22:04)
[2017-04-22] MEDS: hydrOXYzine PAMOATE 50 MG CAPSULE (FP) PO PRN ×2 (00:52→08:33)
[2017-04-22] MEDS ORDERED: METHADONE 40 MG, METHADONE 20 MG PO SCH (06:00)
[2017-04-22] MEDS ORDERED: METHADONE HCL 10 MG TABLET ONE (06:04)
[2017-04-22] MEDS ORDERED: METHADONE HCL 40 MG DISPERSABLE TABLET ONE (06:04)
[2017-04-22] MEDS: INDOMETHACIN 50 MG CAPSULE PO SCH (06:08)
[2017-04-22] MEDS: NICOTINE POLACRILEX 4 MG GUM BUC PRN ×2 (06:10→09:55)
[2017-04-22 06:31] VITALS: BP 132/87; PULSE 68
--- NOTE | 2017-04-22 09:44 | PN ---
Psychiatric Progress Note Vital Signs: Vital Signs Period Temp Pulse Resp BP Sys/Gleason Pulse Ox Last 24 Hr 98.2 F 68 18-18 132/87 Date of Session: 04/22/17 Chief Complaint:: discharge visit HPI: Patient is addressing alcohol, cocaine, nicotine dependence comorbid MDD. ROS: Hep C, h/o withdrawal seizures. Current Medications: Active Medications Generic Name Dose Route Start Last Admin Trade Name Freq PRN Reason Stop Dose Admin Acetaminophen 650 mg 04/05/17 13:56 04/20/17 10:02 Tylenol - PO 650 mg Q4H PRN Administration FEVER OR PAIN Al Hydroxide/Mg Hydroxide 30 ml 04/05/17 13:56 Mylanta Oral Suspension - PO Q6H PRN DYSPEPSIA Aripiprazole 15 mg 04/05/17 22:00 04/21/17 21:25 Abilify PO 15 mg HS FREIDA Administration Citalopram Hydrobromide 20 mg 04/06/17 10:00 04/21/17 10:27 Celexa - PO 20 mg DAILY FREIDA Administration Docusate Sodium 300 mg 04/15/17 22:00 04/21/17 21:24 Colace - PO 300 mg HS FREIDA Administration Eucalyptus/Menthol/Phenol/Sorbitol 1 each 04/05/17 13:56 Cepastat Lozenge - MM Q4H PRN SORE THROAT Hydroxyzine Pamoate 50 mg 04/18/17 11:17 04/22/17 08:33 Vistaril - PO 50 mg Q4H PRN Administration ANXIETY Indomethacin 50 mg 04/17/17 14:30 04/22/17 06:08 Indocin - PO 50 mg TID FREIDA Administration Loperamide HCl 4 mg 04/05/17 13:56 Imodium - PO Q6H PRN DIARRHEA Magnesium Hydroxide 30 ml 04/05/17 13:56 04/20/17 10:03 Milk Of Magnesia - PO 30 ml DAILY PRN Administration CONSTIPATION Methadone HCl 40 mg/ Methadone 60 mg 04/22/17 06:00 04/22/17 06:08 HCl 20 mg PO 04/28/17 05:59 60 mg DAILY@0600 FREIDA Administration Nicotine 21 mg 04/06/17 10:00 04/21/17 10:28 Nicoderm Patch - TD 21 mg DAILY FREIDA Administration Nicotine Polacrilex 4 mg 04/05/17 13:56 04/22/17 06:10 Nicorette Gum - BUC 4 mg Q2H PRN Administration NICOTINE REPLACEMENT RX Pantoprazole Sodium 40 mg 04/17/17 14:30 04/21/17 10:27 Protonix - PO 40 mg DAILY FREIDA Administration Multivit/Folic Acid/Iron 1 tab 04/06/17 10:00 04/21/17 10:27 Vitamins (Sjr) - PO 1 tab DAILY FREIDA Administration Senna 2 tab 04/15/17 10:46 04/19/17 12:26 Senna - PO 2 tab HS PRN Administration CONSTIPATION Thiamine HCl 100 mg 04/05/17 22:00 04/21/17 21:24 Vitamin B1 - PO 100 mg HS FREIDA Administration Current Side Effect: No Lab tests ordered: No Lab tests reviewed: Yes Provider note:: PAtient has completed today his treatment and met his goals, will continue to address his issues at [facility] opd. He understands the negative consequences of his drug addiction on his major life areas including physical and mental health. Coping skills and utilization of support system to prevent relapses have been discussed with the patient. Medications Abilify and Celexa well tolerated, scripts provided for 30 days, patient will f/ u by his psychiatrist at [facility]. Patient is stable for discharge today. Total face to face time:: 35 Mental Status Exam - Mental Status Exam Alert and Oriented to: Time, Place, Person Cognitive Function: Good Patient Appearance: Well Groomed Mood: Hopeful Affect: Appropriate, Mood Congruent Patient Behavior: Appropriate, Cooperative Speech Pattern: Clear, Appropriate Voice Loudness: Normal Thought Process: Intact, Goal Oriented Thought Disorder: Not Present Hallucinations: Denies Suicidal Ideation: Denies Homicidal Ideation: None, Denies Insight/Judgement: Good Sleep: Well Appetite: Good Muscle strength/Tone: Normal Gait/Station: Normal Psychiatric Treatment Plan - Problem List (1) Methadone maintenance therapy patient Current Visit: Yes (2) Nicotine dependence Current Visit: Yes Qualifiers: Nicotine product type: cigarettes Substance use status: in withdrawal Qualified Code(s): F17.213 - Nicotine dependence, cigarettes, with withdrawal (3) MDD (major depressive disorder) Current Visit: No Qualifiers: Major depression recurrence: recurrent Active/Remission status: remission status unspecified Qualified Code(s): F33.9 - Major depressive disorder, recurrent, unspecified (4) Alcohol dependence Current Visit: Yes (5) Cocaine dependence Current Visit: Yes (6) Cannabis dependence Current Visit: Yes (7) Sedative dependence Current Visit: Yes
[2017-04-22] MEDS: CITALOPRAM HYDROBROMIDE 20 MG TABLET (FP) PO SCH (09:54)
[2017-04-22] MEDS: NICOTINE 21 MG/24 HOURS TOPICAL PATCH TD SCH (09:54)
[2017-04-22] MEDS: PRENATAL VITAMINS W/ FOLIC ACID TABLET (FP) PO SCH (09:54)
[2017-04-22] MEDS: PANTOPRAZOLE 40 MG TABLET (FP) PO SCH (09:55)
== END 2017-04-22 11:00 | disposition home or self-care (01) | DRG 772 ==
LOC: YASAS 13:02 → Y5N 13:05
PROVIDERS: ADMIT Psychiatry & Neurology Psychiatry; ATTEND Psychiatry & Neurology Psychiatry
PROC: HZ42ZZZ Group Counseling for Substance Abuse Treatment, Cognitive-Behavioral (ICD-10-PCS; principal; 2017-04-05)
DX: F10.20 Alcohol dependence, uncomplicated (principal); F11.20 Opioid dependence, uncomplicated; F13.20 Sedative, hypnotic or anxiolytic dependence, uncomplicated; F14.20 Cocaine dependence, uncomplicated; F12.20 Cannabis dependence, uncomplicated; F33.9 Major depressive disorder, recurrent, unspecified; B18.2 Chronic viral hepatitis C; Z86.69 Personal history of other diseases of the nervous system and sense organs
CPT/HCPCS: 71020-TC; 90688; G0008

== ENCOUNTER 2017-12-04 12:16 | Inpatient (IN) | payer OTHER ==
[2017-12-04 13:00] VITALS: BMI 21.9
--- NOTE | 2017-12-04 13:54 | HP ---
CIWA Score - CIWA Score Nausea/Vomitin Muscle Tremors: 5 Anxiety: 4-Mod. Anxious/Guarded Agitation: 3 Paroxysmal Sweats: No Perspiration Orientation: 0-Oriented Tacttile Disturbances: 0-None Auditory Disturbances: 0-None Visual Disturbances: 0-None Headache: 1-Very Mild CIWA-Ar Total Score: 16 Admission ROS BHS - HPI Chief Complaint: ALCOHOL WITHDRAWAL SX Allergies/Adverse Reactions: Allergies Allergy/AdvReac Type Severity Reaction Status Date / Time No Known Allergies Allergy Verified 12/04/17 12:42 History of Present Illness: 42 Y/O MALE WITH A HX OF ALCOHOL, COCAINE AND MARIJUANA DEPENDENCE SEEKING DETOX TX. Exam Limitations: No Limitations - Ebola screening Have you traveled outside of the country in the last 21 days: No Have you had contact with anyone from an Ebola affected area: No Have you been sick,other than usual withdrawal symptoms: No Do you have a fever: No - Review of Systems Constitutional: Chills, Loss of Appetite, Night Sweats, Changes in sleep, Unintentional Wgt. Loss EENT: reports: Blurred Vision, Tearing, Tinnitus, Nose Congestion Respiratory: reports: No Symptoms reported Cardiac: reports: Lightheadedness GI: reports: Nausea : reports: No Symptoms Reported Musculoskeletal: reports: Back Pain Integumentary: reports: No Symptoms Reported Neuro: reports: Headache, Seizure (LAST EPISODE 2 WEEKS AGO-WENT TO [facility]), Tremors, Dizziness Endocrine: reports: No Symptoms Reported Hematology: reports: No Symptoms Reported Psychiatric: reports: Orientated x3, Anxious Other Systems: Reviewed and Negative Patient History - Patient Medical History Hx Anemia: No Hx Asthma: No Hx Chronic Obstructive Pulmonary Disease (COPD): No Hx Cancer: No Hx Cardiac Disorders: No Hx Congestive Heart Failure: No Hx Hypertension: No Hx Hypercholesterolemia: No Hx Pacemaker: No HX Cerebrovascular Accident: No Hx Seizures: Yes (withdrawal related last 2 weeks ago) Hx Dementia: No Hx Diabetes: No Hx Gastrointestinal Disorders: No Hx Liver Disease: No Hx Genitourinary Disorders: No Hx Sexually Transmitted Disorders: No (DENIES) Hx Renal Disease (ESRD): No Hx Thyroid Disease: No Hx Human Immunodeficiency Virus (HIV): No (negative hx) Hx Hepatitis C: Yes (treatment recieved 10yrs ago) Hx Depression: Yes (ON MEDS) Hx Suicide Attempt: Yes (Pt tried to hang himself at 22 yrs old.) Hx Bipolar Disorder: No Hx Schizophrenia: No Other Medical History: HX INSOMNIA - Patient Surgical History Past Surgical History: Yes Hx Neurologic Surgery: No Hx Cataract Extraction: No Hx Cardiac Surgery: No Hx Lung Surgery: No Hx Breast Surgery: No Hx Breast Biopsy: No Hx Abdominal Surgery: Yes (liver biopsy 10 yrs ago.) Hx Appendectomy: No Hx Cholecystectomy: No Hx Genitourinary Surgery: No Hx Orthopedic Surgery: No Anesthesia Reaction: No - PPD History Previous Implant?: Yes Documented Results: Positive w/proof Implanted On Prior [facility] Admission?: Yes Date: 04/03/17 Results: 14 MM PPD to be Administered?: No - Reproductive History Patient is a Female of Child Bearing Age (11 -55 yrs old): No (MALE) - Smoking Cessation Smoking history: Current every day smoker Have you smoked in the past 12 months: Yes Aproximately how many cigarettes per day: 10 Cigars Per Day: 0 Hx Chewing Tobacco Use: No Initiated information on smoking cessation: Yes 'Breaking Loose' booklet given: 12/04/17 - Substance & Tx. History Hx Alcohol Use: Yes (VODKA) Hx Substance Use: Yes (COCAINE/MARIJUANA) Substance Use Type: Alcohol, Cocaine, Marijuana Hx Substance Use Treatment: Yes (LAST TX AT [facility]) - Substances Abused Alcohol Route: Oral Frequency: Daily Amount used: 15-20 VODKA DRINKS Age of first use: 18 Date of Last Use: 12/04/17 Cocaine Route: Smoking Frequency: Daily Amount used: $50-100 Age of first use: 30 Date of Last Use: 12/03/17 Marijuana/Hashish Route: Smoking Frequency: 1-3 times last 30 days Amount used: 1 JOINT Age of first use: 18 Date of Last Use: 12/02/17 Family Disease History - Family Disease History Family History: Denies Admission Physical Exam S - Vital Signs Vital Signs: Vital Signs - 24 hr 12/04/17 12:51 Temperature 98.7 F Pulse Rate 75 Respiratory 20 Rate Blood Pressure 154/78 - Physical General Appearance: Yes: Moderate Distress, Tremorous, Irritable, Anxious HEENTM: Yes: EOMI, Normocephalic, JEWELS, Pharynx Normal Respiratory: Yes: Chest Non-Tender, Lungs Clear, Normal Breath Sounds, No Respiratory Distress Neck: Yes: No masses,lesions,Nodules, Supple, Trachea in good position Breast: Yes: Breast Exam Deferred Cardiology: Yes: Regular Rhythm, Regular Rate, S1, S2 Abdominal: Yes: Normal Bowel Sounds, Non Tender, Flat, Soft Genitourinary: Yes: Other (N/C) Back: Yes: Within Normal Limits Musculoskeletal: Yes: full range of Motion, Gait Steady Extremities: Yes: Normal Range of Motion, Non-Tender, Tremors 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 intact, Fully Oriented, Alert, Motor Strength 5/5 Integumentary: Yes: Normal Color, Dry, Warm Lymphatic: Yes: Within Normal Limits - Diagnostic (1) Alcohol dependence with uncomplicated withdrawal Current Visit: Yes Status: Acute (2) Cocaine dependence Current Visit: Yes Status: Acute Qualifiers: Substance use status: uncomplicated Qualified Code(s): F14.20 - Cocaine dependence, uncomplicated (3) Nicotine dependence Current Visit: No Status: Chronic Qualifiers: Nicotine product type: cigarettes Substance use status: in withdrawal Qualified Code(s): F17.213 - Nicotine dependence, cigarettes, with withdrawal (4) Cannabis dependence, uncomplicated Current Visit: Yes Status: Acute Cleared for Admission [facility] - Detox or Rehab [facility] Level of Care: Medically Managed Detox Regimen/Protocol: Librium [facility] Breath Alcohol Content Breath Alcohol Content: 0 Urine Drug Screen - Results Drug Screen Negative: No Urine Drug Screen Results: THC-Marijuana, REHANA-Cocaine
[2017-12-04] MEDS ORDERED: LOPERAMIDE HCL 2 MG CAPSULE PO PRN (14:00)
[2017-12-04] MEDS ORDERED: MAGNESIUM CITRATE 300 ML BOTTLE PO PRN (14:00)
[2017-12-04] MEDS ORDERED: MAG HYDROX/AL HYDROX/SIMETH 30 ML UNIT-DOSE CUP PO PRN (14:00)
[2017-12-04] MEDS ORDERED: MAGNESIUM HYDROX 2400MG/30ML ORAL SUSPENSION 30 ML CUP PO PRN (14:00)
[2017-12-04] MEDS ORDERED: hydrOXYzine PAMOATE 50 MG CAPSULE (FP) PO PRN (14:00)
[2017-12-04] MEDS ORDERED: chlordiazePOXIDE HCL 25 MG CAPSULE PO ONE (14:30)
[2017-12-04] MEDS: NICOTINE 14 MG/24 HOURS TOPICAL PATCH TD SCH (15:02)
--- NOTE | 2017-12-04 15:55 | CONSULT ---
[facility] Psychiatric Consult - Data Date of interview: 12/04/17 Admission source: [facility] Identifying data: Patient is a 42 year old single male, father of one, unemployed (not receiving financial assistance), and currently homeless. Patient admitted to for alcohol, cocaine and marijuana dependence. Substance Abuse History: Following information confirmed with Mr. Vines: Substance & Tx. History. Hx Alcohol Use: Yes (VODKA). Hx Substance Use: Yes ( COCAINE/MARIJUANA). Substance Use Type: Alcohol, Cocaine, Marijuana. Hx Substance Use Treatment: Yes (LAST TX AT [facility]). - Substances Abused. Alcohol. Route: Oral. Frequency: Daily. Amount used: 15-20 VODKA DRINKS. Age of first use: 18. Date of Last Use: 12/04/17. Cocaine. Route: Smoking. Frequency: Daily. Amount used: $50-100. Age of first use: 30. Date of Last Use: 12/03/17. Marijuana/Hashish. Route: Smoking. Frequency: 1-3 times last 30 days. Amount used: 1 JOINT. Age of first use: 18. Date of Last Use: 12/02/17 Medical History: Seizure (2 weeks ago r/t ETOH), Hep C (treated 10 years ago), liver biopsy (10 years ago). Psychiatric History: Patient's first psychiatric contact was at 23 years of age for depression. Pt. reports h/o multiple psychiatric hospitalizations, most recently at [facility] five years ago. Patient is also known to [facility]. OPD is provided at [facility]. Pt. is currently prescribed abilify 10mg + celexa 20mg + topamax 50mg (reports sub optimal adherence to topamax). Patient reports one suicide attempt at 23 years of age via hanging. Pt. currently denies suicidal and homicidal ideation. Physical/Sexual Abuse/Trauma History: Denies. Mental Status Exam - Mental Status Exam Alert and Oriented to: Time, Place, Person Cognitive Function: Good Patient Appearance: Unkempt Mood: Euthymic Affect: Mood Congruent Patient Behavior: Appropriate, Cooperative Speech Pattern: Clear, Appropriate Voice Loudness: Normal Thought Process: Intact, Goal Oriented Thought Disorder: Not Present Hallucinations: Denies Suicidal Ideation: Denies Homicidal Ideation: Denies Insight/Judgement: Poor Sleep: Poorly Appetite: Fair Muscle strength/Tone: Normal Gait/Station: Normal Psychiatric Findings - Problem List ([place] 1, 2,3) (1) Alcohol dependence with uncomplicated withdrawal Current Visit: Yes Status: Acute (2) Cannabis dependence, uncomplicated Current Visit: Yes Status: Acute (3) Cocaine dependence Current Visit: Yes Status: Acute Qualifiers: Substance use status: uncomplicated Qualified Code(s): F14.20 - Cocaine dependence, uncomplicated (4) Insomnia Current Visit: Yes Status: Acute Qualifiers: Insomnia type: unspecified Qualified Code(s): G47.00 - Insomnia, unspecified (5) Substance induced mood disorder Current Visit: Yes Status: Acute (6) MDD (major depressive disorder) Current Visit: Yes Status: Chronic Qualifiers: Major depression recurrence: recurrent Active/Remission status: remission status unspecified Qualified Code(s): F33.9 - Major depressive disorder, recurrent, unspecified Comment: Self reports. - Initial Treatment Plan Initial Treatment Plan: Psychoeducation provided. Detoxification in progress. Abilify 10mg + Celexa 20mg + Topamax 25mg BID ordered (lower topamax dose due to sub-optimal adherence of medication) + Belsomra 10mg. Benefits and side effects discussed. Verbal consent given. Will continue to monitor.
[2017-12-04 17:11] LABS: ALBUMIN 4.5 g/dl (3.4-5.0); ANION GAP 12 (8-16); BLOOD UREA NITROGEN 11 mg/dL (7-18); CALCIUM 9.8 mg/dL (8.5-10.1); CHLORIDE 101 mmol/L (98-107); CO2 29 mmol/L (21-32); GLUCOSE,RANDOM 96 mg/dL (74-106); HEMATOCRIT 42.1 % (35.4-49); HEMOGLOBIN 14.7 GM/dL (11.7-16.9); MCH 30.7 pg (25.7-33.7); MCHC 34.8 g/dl (32.0-35.9); MEAN CELL VOLUME 88.1 fl (80-96); MEAN PLT VOLUME 10.4 fl (7.5-11.1); PLATELET COUNT 225 K/MM3 (134-434); POTASSIUM 4.2 mmol/L (3.5-5.1); RBC 4.78 M/mm3 (4.00-5.60); RDW 15.3 % (11.9-15.9); SODIUM 142 mmol/L (136-145)
[2017-12-04 17:15] LABS: ALK PHOS 66 U/L (45-117); BILIRUBIN,TOTAL 0.4 mg/dL (0.2-1.0); CREATININE 0.8 mg/dL (0.7-1.3); SGOT/AST 22 U/L (15-37); SGPT/ALT 22 U/L (12-78); TOT PROT 7.4 g/dl (6.4-8.2)
[2017-12-04] MEDS: chlordiazePOXIDE HCL 25 MG CAPSULE PO SCH ×2 (17:33→22:52)
[2017-12-04] MEDS: NICOTINE POLACRILEX 2 MG GUM BUC PRN (17:35)
[2017-12-04 17:55] LABS: URINE APPEARANCE CLEAR; URINE BILIRUBIN NEGATIVE (<2.0 mg/dL); URINE COLOR STRAW; URINE GLUCOSE (UA) NEGATIVE (NEGATIVE); URINE KETONE NEGATIVE (NEGATIVE); URINE LEUK ESTERASE NEGATIVE (NEGATIVE); URINE NITRITE NEGATIVE (NEGATIVE); URINE PROTEIN NEGATIVE (NEGATIVE); URINE UROBILINOGEN NEGATIVE mg/dL (0.2-1.0)
[2017-12-04] MEDS ORDERED: MELATONIN 5 MG TABLETS PO PRN (22:00)
[2017-12-04] MEDS: THIAMINE HCL 100 MG TABLET (FP) PO SCH (22:52)
[2017-12-04] MEDS: TOPIRAMATE 25 MG TABLET (FP) PO SCH (22:52)
[2017-12-04] MEDS: SUVOREXANT 10 MG TABLET PO PRN (22:53)
[2017-12-05] MEDS: chlordiazePOXIDE HCL 25 MG CAPSULE PO SCH ×4 (06:02→22:25)
--- NOTE | 2017-12-05 09:50 | EKG ---
Test Reason : Blood Pressure : / mmHG Vent. Rate : 050 BPM Atrial Rate : 050 BPM P-R Int : 146 ms QRS Dur : 084 ms QT Int : 430 ms P-R-T Axes : 062 078 068 degrees QTc Int : 392 ms SINUS BRADYCARDIA EARLY REPOLARIZATION OTHERWISE NORMAL ECG WHEN COMPARED WITH ECG OF 01-APR-2017 17:10, QT HAS SHORTENED Confirmed by MARIA E SERRANO MD ([id number]) on 12/05/2017 9:49:57 AM Referred By: Confirmed By:MARIA E SERRANO MD
[2017-12-05] MEDS: CITALOPRAM HYDROBROMIDE 20 MG TABLET (FP) PO SCH (10:23)
[2017-12-05] MEDS: PRENATAL VITAMINS W/ FOLIC ACID TABLET (FP) PO SCH (10:23)
[2017-12-05] MEDS: TOPIRAMATE 25 MG TABLET (FP) PO SCH ×2 (10:23→22:25)
[2017-12-05] MEDS: ARIPiprazole 10 MG TABLET PO SCH (10:23)
[2017-12-05] MEDS: NICOTINE 14 MG/24 HOURS TOPICAL PATCH TD SCH (10:23)
[2017-12-05] MEDS: IBUPROFEN 400 MG TABLET (FP) PO PRN (11:47)
[2017-12-05] MEDS: CYCLOBENZAPRINE HCL 10 MG TABLET (FP) PO PRN ×2 (11:47→22:26)
--- NOTE | 2017-12-05 12:20 | PN ---
S CIWA - CIWA Score Nausea/Vomitin Muscle Tremors: 3 Anxiety: 4-Mod. Anxious/Guarded Agitation: 2 Paroxysmal Sweats: No Perspiration Orientation: 0-Oriented Tacttile Disturbances: 2-Mild Itch/Numbness/Burn Auditory Disturbances: 2-Mild Harshness/Frighten Visual Disturbances: 3-Moderate Sensitivity Headache: 0-None Present CIWA-Ar Total Score: 19 BHS Progress Note (SOAP) Subjective: Body Aches, Nausea, Fatigue, Tremors, Stomach Cramping. Objective: PATIENT A & O X 3, OBSERVED AMBULATING ON UNIT. NO ACUTE DISTRESS. 12/05/17 12:19 Vital Signs Temperature 96.7 F L 12/05/17 06:12 Pulse Rate 80 12/05/17 06:12 Respiratory Rate 18 12/05/17 06:30 Blood Pressure 116/77 12/05/17 06:12 O2 Sat by Pulse Oximetry (%) Laboratory Tests 12/04/17 12/04/17 12/04/17 14:00 14:00 14:00 WBC 6.0 RBC 4.78 Hgb 14.7 D Hct 42.1 MCV 88.1 MCH 30.7 MCHC 34.8 RDW 15.3 Plt Count 225 MPV 10.4 Sodium 142 Potassium 4.2 Chloride 101 Carbon Dioxide 29 Anion Gap 12 BUN 11 Creatinine 0.8 Creat Clearance w eGFR > 60 Random Glucose 96 D Calcium 9.8 Total Bilirubin 0.4 D AST 22 D ALT 22 D Alkaline Phosphatase 66 Total Protein 7.4 D Albumin 4.5 D Urine Color Urine Appearance Urine pH Ur Specific [place] Urine Protein Urine Glucose (UA) Urine Ketones Urine Blood Urine Nitrite Urine Bilirubin Urine Urobilinogen Ur Leukocyte Esterase RPR Titer Nonreactive 12/04/17 15:45 WBC RBC Hgb Hct MCV MCH MCHC RDW Plt Count MPV Sodium Potassium Chloride Carbon Dioxide Anion Gap BUN Creatinine Creat Clearance w eGFR Random Glucose Calcium Total Bilirubin AST ALT Alkaline Phosphatase Total Protein Albumin Urine Color Straw Urine Appearance Clear Urine pH 7.0 Ur Specific [place] 1.008 Urine Protein Negative Urine Glucose (UA) Negative Urine Ketones Negative Urine Blood Negative Urine Nitrite Negative Urine Bilirubin Negative Urine Urobilinogen Negative Ur Leukocyte Esterase Negative RPR Titer LABS NOTED. Assessment: 12/05/17 12:19 WITHDRAWAL SYMPTOMS. Plan: CONTINUE DETOX. INCREASE DAILY PO FLUID INTAKE. PRN FLEXERIL PO FOR BODY ACHES/ MUSCLE SPASMS.
[2017-12-05] MEDS: chlordiazePOXIDE HCL 25 MG CAPSULE PO PRN (14:57)
[2017-12-05] MEDS: SUVOREXANT 10 MG TABLET PO PRN (22:25)
[2017-12-05] MEDS: THIAMINE HCL 100 MG TABLET (FP) PO SCH (22:25)
[2017-12-06] MEDS: chlordiazePOXIDE HCL 25 MG CAPSULE PO PRN ×2 (01:00→14:49)
[2017-12-06] MEDS: ACETAMINOPHEN 325 MG TABLET (FP) PO PRN ×2 (03:28→10:34)
[2017-12-06] MEDS: MENTHOL/PHENOL 1 EACH UD MM PRN ×2 (03:28→10:33)
[2017-12-06] MEDS: P-EPHED 60MG/TRIPROLIDI 2.5MG TABLET PO PRN ×2 (03:28→18:32)
[2017-12-06] MEDS: guaiFENesin/D-METHORPHAN HB 10 ML UNIT-DOSE CUPS PO PRN ×2 (03:29→18:32)
[2017-12-06] MEDS: chlordiazePOXIDE HCL 25 MG CAPSULE PO SCH ×2 (05:17→10:33)
[2017-12-06] MEDS: PRENATAL VITAMINS W/ FOLIC ACID TABLET (FP) PO SCH (10:33)
[2017-12-06] MEDS: ARIPiprazole 10 MG TABLET PO SCH (10:33)
[2017-12-06] MEDS: TOPIRAMATE 25 MG TABLET (FP) PO SCH ×2 (10:33→22:30)
[2017-12-06] MEDS: CITALOPRAM HYDROBROMIDE 20 MG TABLET (FP) PO SCH (10:33)
[2017-12-06] MEDS: NICOTINE 14 MG/24 HOURS TOPICAL PATCH TD SCH (10:34)
[2017-12-06] MEDS ORDERED: cloNIDine HCL 0.1 MG TABLET PO ONE (13:01)
[2017-12-06] MEDS ORDERED: TRIMETHOBENZAMIDE HCL 200MG/2ML INJ IM PRN (13:03)
--- NOTE | 2017-12-06 16:19 | PN ---
S CIWA - CIWA Score Nausea/Vomitin Muscle Tremors: 3 Anxiety: 5 Agitation: 3 Paroxysmal Sweats: No Perspiration Orientation: 0-Oriented Tacttile Disturbances: 1-Very Mild Itch/Numbness Auditory Disturbances: 0-None Visual Disturbances: 0-None Headache: 3-Moderate CIWA-Ar Total Score: 18 BHS Progress Note (SOAP) Subjective: Nausea, Tremors, H/A, Interrupted Sleep, Body Aches. Objective: PATIENT A & O X 3, OBSERVED AMBULATING ON UNIT. NO ACUTE DISTRESS. 12/06/17 16:18 Vital Signs Temperature 97.1 F L 12/06/17 14:59 Pulse Rate 84 12/06/17 14:59 Respiratory Rate 20 12/06/17 14:59 Blood Pressure 125/86 12/06/17 14:59 O2 Sat by Pulse Oximetry (%) Laboratory Tests 12/04/17 12/04/17 12/04/17 14:00 14:00 14:00 WBC 6.0 RBC 4.78 Hgb 14.7 D Hct 42.1 MCV 88.1 MCH 30.7 MCHC 34.8 RDW 15.3 Plt Count 225 MPV 10.4 Sodium 142 Potassium 4.2 Chloride 101 Carbon Dioxide 29 Anion Gap 12 BUN 11 Creatinine 0.8 Creat Clearance w eGFR > 60 Random Glucose 96 D Calcium 9.8 Total Bilirubin 0.4 D AST 22 D ALT 22 D Alkaline Phosphatase 66 Total Protein 7.4 D Albumin 4.5 D Urine Color Urine Appearance Urine pH Ur Specific [place] Urine Protein Urine Glucose (UA) Urine Ketones Urine Blood Urine Nitrite Urine Bilirubin Urine Urobilinogen Ur Leukocyte Esterase RPR Titer Nonreactive 12/04/17 15:45 WBC RBC Hgb Hct MCV MCH MCHC RDW Plt Count MPV Sodium Potassium Chloride Carbon Dioxide Anion Gap BUN Creatinine Creat Clearance w eGFR Random Glucose Calcium Total Bilirubin AST ALT Alkaline Phosphatase Total Protein Albumin Urine Color Straw Urine Appearance Clear Urine pH 7.0 Ur Specific [place] 1.008 Urine Protein Negative Urine Glucose (UA) Negative Urine Ketones Negative Urine Blood Negative Urine Nitrite Negative Urine Bilirubin Negative Urine Urobilinogen Negative Ur Leukocyte Esterase Negative RPR Titer LABS NOTED. Assessment: 12/06/17 16:19 WITHDRAWAL SYMPTOMS. Plan: CONTINUE DETOX.
[2017-12-06] MEDS: chlordiazePOXIDE 5 MG CAPSULE PO SCH ×2 (17:21→22:30)
[2017-12-06] MEDS: THIAMINE HCL 100 MG TABLET (FP) PO SCH (22:30)
[2017-12-06] MEDS: CYCLOBENZAPRINE HCL 10 MG TABLET (FP) PO PRN (22:32)
[2017-12-06] MEDS: SUVOREXANT 10 MG TABLET PO PRN (23:00)
[2017-12-06] MEDS: IBUPROFEN 400 MG TABLET (FP) PO PRN (23:01)
[2017-12-07] MEDS: chlordiazePOXIDE 5 MG CAPSULE PO SCH ×2 (05:29→10:25)
[2017-12-07] MEDS ORDERED: cloNIDine HCL 0.1 MG TABLET PO ONE (09:30)
[2017-12-07] MEDS: TOPIRAMATE 25 MG TABLET (FP) PO SCH ×2 (10:25→22:23)
[2017-12-07] MEDS: ARIPiprazole 10 MG TABLET PO SCH (10:25)
[2017-12-07] MEDS: PRENATAL VITAMINS W/ FOLIC ACID TABLET (FP) PO SCH (10:25)
[2017-12-07] MEDS: NICOTINE 14 MG/24 HOURS TOPICAL PATCH TD SCH (10:25)
[2017-12-07] MEDS: CITALOPRAM HYDROBROMIDE 20 MG TABLET (FP) PO SCH (10:25)
[2017-12-07] MEDS: MENTHOL/PHENOL 1 EACH UD MM PRN (10:26)
[2017-12-07] MEDS: guaiFENesin/D-METHORPHAN HB 10 ML UNIT-DOSE CUPS PO PRN (10:26)
[2017-12-07] MEDS: P-EPHED 60MG/TRIPROLIDI 2.5MG TABLET PO PRN (10:26)
[2017-12-07] MEDS: IBUPROFEN 400 MG TABLET (FP) PO PRN ×2 (10:57→22:24)
--- NOTE | 2017-12-07 13:34 | PN ---
BHS Progress Note (SOAP) Subjective: ANXIETY,TREMORS,SWEATS.NASAL CONGESTION, INTERMITTENT SLEEP. Objective: 12/07/17 13:34 Vital Signs 12/07/17 12/07/17 06:16 10:33 Temperature 96.8 F L 96.1 F L Pulse Rate 83 81 Respiratory 18 20 Rate Blood Pressure 105/69 113/86 Laboratory Tests 12/04/17 12/04/17 12/04/17 14:00 14:00 14:00 WBC 6.0 RBC 4.78 Hgb 14.7 D Hct 42.1 MCV 88.1 MCH 30.7 MCHC 34.8 RDW 15.3 Plt Count 225 MPV 10.4 Sodium 142 Potassium 4.2 Chloride 101 Carbon Dioxide 29 Anion Gap 12 BUN 11 Creatinine 0.8 Creat Clearance w eGFR > 60 Random Glucose 96 D Calcium 9.8 Total Bilirubin 0.4 D AST 22 D ALT 22 D Alkaline Phosphatase 66 Total Protein 7.4 D Albumin 4.5 D Urine Color Urine Appearance Urine pH Ur Specific [place] Urine Protein Urine Glucose (UA) Urine Ketones Urine Blood Urine Nitrite Urine Bilirubin Urine Urobilinogen Ur Leukocyte Esterase RPR Titer Nonreactive 12/04/17 15:45 WBC RBC Hgb Hct MCV MCH MCHC RDW Plt Count MPV Sodium Potassium Chloride Carbon Dioxide Anion Gap BUN Creatinine Creat Clearance w eGFR Random Glucose Calcium Total Bilirubin AST ALT Alkaline Phosphatase Total Protein Albumin Urine Color Straw Urine Appearance Clear Urine pH 7.0 Ur Specific [place] 1.008 Urine Protein Negative Urine Glucose (UA) Negative Urine Ketones Negative Urine Blood Negative Urine Nitrite Negative Urine Bilirubin Negative Urine Urobilinogen Negative Ur Leukocyte Esterase Negative RPR Titer Assessment: 12/07/17 13:34 WITHDRAWAL SX Plan: CONTINUE DETOX
[2017-12-07] MEDS: chlordiazePOXIDE HCL 10 MG CAPSULE PO SCH ×2 (17:34→22:23)
[2017-12-07] MEDS: NICOTINE POLACRILEX 2 MG GUM BUC PRN (19:10)
[2017-12-07] MEDS: SUVOREXANT 10 MG TABLET PO PRN (21:54)
[2017-12-07] MEDS: THIAMINE HCL 100 MG TABLET (FP) PO SCH (22:23)
[2017-12-07] MEDS: CYCLOBENZAPRINE HCL 10 MG TABLET (FP) PO PRN (22:24)
[2017-12-08] MEDS: chlordiazePOXIDE HCL 10 MG CAPSULE PO SCH (05:15)
[2017-12-08 09:05] VITALS: BP 113/85; PULSE 83; TEMP 96.5
[2017-12-08] MEDS: ARIPiprazole 10 MG TABLET PO SCH (09:15)
[2017-12-08] MEDS: CITALOPRAM HYDROBROMIDE 20 MG TABLET (FP) PO SCH (09:15)
[2017-12-08] MEDS: PRENATAL VITAMINS W/ FOLIC ACID TABLET (FP) PO SCH (09:15)
[2017-12-08] MEDS: TOPIRAMATE 25 MG TABLET (FP) PO SCH (09:15)
== END 2017-12-08 09:49 | disposition home or self-care (01) | DRG 774 ==
LOC: YASAS 12:16 → Y3N 14:14
PROVIDERS: ADMIT Internal Medicine; ATTEND Internal Medicine
PROC: HZ2ZZZZ Detoxification Services for Substance Abuse Treatment (ICD-10-PCS; principal; 2017-12-04)
DX: F10.230 Alcohol dependence with withdrawal, uncomplicated (principal); F14.20 Cocaine dependence, uncomplicated; F12.20 Cannabis dependence, uncomplicated; F17.213 Nicotine dependence, cigarettes, with withdrawal; F19.24 Other psychoactive substance dependence with psychoactive substance-induced mood disorder; F33.9 Major depressive disorder, recurrent, unspecified; G47.00 Insomnia, unspecified; G40.909 Epilepsy, unspecified, not intractable, without status epilepticus; Z86.19 Personal history of other infectious and parasitic diseases; Z91.5 Personal history of self-harm
CPT/HCPCS: 36415; 80053; 81003; 85027; 86593; 93005; 93010; J0735

== ENCOUNTER 2022-06-03 11:22 | Inpatient (IN) | payer OTHER ==
[2022-06-03 12:35] VITALS: BMI 18.1
[2022-06-03] MEDS ORDERED: ONDANSETRON *ODT* 4 MG TABLET SL PRN (14:02)
[2022-06-03] MEDS ORDERED: LOPERAMIDE HCL 2 MG CAPSULE PO PRN (14:02)
[2022-06-03] MEDS ORDERED: BENZOCAINE/MENTHOL (CHLORASEPTIC ) LOZENGE MM PRN (14:02)
[2022-06-03] MEDS ORDERED: NALOXONE HCL (KLOXXADO) 8 MG SPRAY NS PRN (14:02)
[2022-06-03] MEDS ORDERED: DICYCLOMINE HCL 10 MG CAPSULE PO PRN (14:02)
[2022-06-03] MEDS ORDERED: MAGNESIUM HYDROX 2400MG/30ML ORAL SUSPENSION 30 ML CUP PO PRN (14:02)
[2022-06-03] MEDS ORDERED: ACETAMINOPHEN 325 MG TABLET (FP) PO PRN ×2 (14:02)
[2022-06-03] MEDS ORDERED: IBUPROFEN 600 MG TABLET (FP) PO PRN (14:02)
[2022-06-03] MEDS ORDERED: MAGNESIUM CITRATE 300 ML BOTTLE PO PRN (14:02)
[2022-06-03] MEDS ORDERED: IBUPROFEN 400 MG TABLET (FP) PO PRN (14:02)
[2022-06-03] MEDS ORDERED: NICOTINE 10 MG CARTRIDGE (INHALER) IH PRN (14:02)
[2022-06-03] MEDS ORDERED: BISMUTH SUBSALICYLATE 524 MG/30 ML PO PRN (14:02)
[2022-06-03] MEDS ORDERED: MAG HYDROX/AL HYDROX/SIMETH 30 ML UNIT-DOSE CUP PO PRN (14:02)
[2022-06-03] MEDS: PRENATAL VITAMINS W/ FOLIC ACID TABLET (FP) PO SCH (14:32)
[2022-06-03] MEDS: hydrOXYzine PAMOATE 25 MG CAPSULE (FP) PO PRN (22:15)
[2022-06-03] MEDS: MELATONIN 5 MG TABLETS PO SCH (22:16)
[2022-06-03] MEDS: THIAMINE HCL 100 MG TABLET (FP) PO SCH (22:16)
[2022-06-04] MEDS: METHOCARBAMOL 500 MG TABLET PO PRN (05:12)
[2022-06-04] MEDS: diazePAM 5 MG TABLET PO SCH ×3 (10:07→22:35)
[2022-06-04] MEDS: PRENATAL VITAMINS W/ FOLIC ACID TABLET (FP) PO SCH (10:07)
[2022-06-04 10:51] LABS: HEMATOCRIT 41.5 % (35.4-49); HEMOGLOBIN 13.9 GM/dL (11.7-16.9); MCH 30.1 pg (25.7-33.7); MCHC 33.5 g/dl (32.0-35.9); MEAN CELL VOLUME 89.7 fl (80-96); MEAN PLT VOLUME 8.8 fl (7.5-11.1); PLATELET COUNT 235 10^3/uL (134-434); RBC 4.62 M/mm3 (4.00-5.60); RDW 14.2 % (11.9-15.9); WHITE BLOOD COUNT 4.9 K/mm3 (4.0-10.0)
[2022-06-04 11:27] LABS: ALBUMIN 3.4 g/dl (3.4-5.0); BLOOD UREA NITROGEN 17.4 mg/dL (7-18)
[2022-06-04 11:30] LABS: CREATININE 0.6 mg/dL (0.55-1.3)
[2022-06-04 11:31] LABS: BILIRUBIN,TOTAL 0.3 mg/dL (0.2-1); TOT PROT 6.4 g/dl (6.4-8.2)
[2022-06-04] MEDS ORDERED: methaDONE HCL 10 MG TABLET PO SCH (11:45)
[2022-06-04 12:24] LABS: HIV INTERPRETATION NEGATIVE (NEGATIVE)
[2022-06-04] MEDS: diazePAM 5 MG TABLET PO PRN ×2 (13:23→20:03)
[2022-06-04] MEDS: THIAMINE HCL 100 MG TABLET (FP) PO SCH (22:34)
[2022-06-04] MEDS: OLANZapine 10 MG TABLET PO SCH (22:34)
[2022-06-04] MEDS: MELATONIN 5 MG TABLETS PO SCH (22:35)
[2022-06-05] MEDS: diazePAM 5 MG TABLET PO SCH ×4 (05:11→22:17)
[2022-06-05] MEDS: diazePAM 5 MG TABLET PO PRN ×3 (08:03→20:00)
[2022-06-05] MEDS: PRENATAL VITAMINS W/ FOLIC ACID TABLET (FP) PO SCH (10:11)
[2022-06-05] MEDS: METHOCARBAMOL 500 MG TABLET PO PRN (10:12)
[2022-06-05] MEDS: hydrOXYzine PAMOATE 25 MG CAPSULE (FP) PO PRN (10:12)
[2022-06-05] MEDS: FLUoxetine HCL 20 MG CAPSULE PO SCH (10:12)
[2022-06-05] MEDS: lamoTRIgine 25 MG TABLET PO SCH (10:12)
[2022-06-05] MEDS: THIAMINE HCL 100 MG TABLET (FP) PO SCH (22:17)
[2022-06-05] MEDS: OLANZapine 10 MG TABLET PO SCH (22:18)
[2022-06-05] MEDS: MELATONIN 5 MG TABLETS PO SCH (22:18)
[2022-06-06] MEDS: diazePAM 5 MG TABLET PO SCH ×3 (05:21→22:40)
[2022-06-06] MEDS: lamoTRIgine 25 MG TABLET PO SCH (10:05)
[2022-06-06] MEDS: FLUoxetine HCL 20 MG CAPSULE PO SCH (10:05)
[2022-06-06] MEDS: METHOCARBAMOL 500 MG TABLET PO PRN (10:05)
[2022-06-06] MEDS: PRENATAL VITAMINS W/ FOLIC ACID TABLET (FP) PO SCH (10:05)
[2022-06-06] MEDS: diazePAM 5 MG TABLET PO PRN ×2 (10:06→17:35)
[2022-06-06] MEDS: OLANZapine 10 MG TABLET PO SCH (22:40)
[2022-06-06] MEDS: THIAMINE HCL 100 MG TABLET (FP) PO SCH (22:40)
[2022-06-06] MEDS: MELATONIN 5 MG TABLETS PO SCH (22:40)
[2022-06-07] MEDS: diazePAM 5 MG TABLET PO SCH ×2 (05:19→17:20)
[2022-06-07] MEDS: PRENATAL VITAMINS W/ FOLIC ACID TABLET (FP) PO SCH (10:08)
[2022-06-07] MEDS: lamoTRIgine 25 MG TABLET PO SCH (10:08)
[2022-06-07] MEDS: FLUoxetine HCL 20 MG CAPSULE PO SCH (10:09)
[2022-06-07] MEDS: METHOCARBAMOL 500 MG TABLET PO PRN (10:09)
[2022-06-07] MEDS: hydrOXYzine PAMOATE 25 MG CAPSULE (FP) PO PRN (10:09)
[2022-06-07] MEDS: OLANZapine 10 MG TABLET PO SCH (22:23)
[2022-06-07] MEDS: THIAMINE HCL 100 MG TABLET (FP) PO SCH (22:23)
[2022-06-07] MEDS: MELATONIN 5 MG TABLETS PO SCH (22:23)
[2022-06-08] MEDS ORDERED: diazePAM 5 MG TABLET PO ONE (06:00)
[2022-06-08 09:48] VITALS: BP 131/90; PULSE 70; RESP 16; TEMP 97.5
[2022-06-08] MEDS: PRENATAL VITAMINS W/ FOLIC ACID TABLET (FP) PO SCH (10:20)
[2022-06-08] MEDS: METHOCARBAMOL 500 MG TABLET PO PRN (10:20)
[2022-06-08] MEDS: FLUoxetine HCL 20 MG CAPSULE PO SCH (10:20)
[2022-06-08] MEDS: lamoTRIgine 25 MG TABLET PO SCH (10:20)
[2022-06-08] MEDS: hydrOXYzine PAMOATE 25 MG CAPSULE (FP) PO PRN (10:21)
== END 2022-06-08 12:30 | disposition other institution (70) | DRG 773 ==
LOC: YASAS 11:22 → UNDOADMIN 13:46 → Y6N 13:46
PROVIDERS: ADMIT Allergy & Immunology; ATTEND Surgery
PROC: HZ2ZZZZ Detoxification Services for Substance Abuse Treatment (ICD-10-PCS; principal; 2022-06-03)
DX: F11.23 Opioid dependence with withdrawal (principal); F10.230 Alcohol dependence with withdrawal, uncomplicated; F14.20 Cocaine dependence, uncomplicated; F12.20 Cannabis dependence, uncomplicated; F17.210 Nicotine dependence, cigarettes, uncomplicated; F31.9 Bipolar disorder, unspecified; F19.24 Other psychoactive substance dependence with psychoactive substance-induced mood disorder; F39 Unspecified mood [affective] disorder; Z86.69 Personal history of other diseases of the nervous system and sense organs
CPT/HCPCS: 36415; 80053; 85027; 86780; 87389; C9803-CS; U0003; U0005

== ENCOUNTER 2022-06-08 12:45 | Inpatient (IN) | payer OTHER ==
[2022-06-08] MEDS ORDERED: MAGNESIUM CITRATE 300 ML BOTTLE PO PRN (15:38)
[2022-06-08] MEDS ORDERED: guaiFENesin 200 MG/10 ML 10 ML UNIT-DOSE CUPS PO PRN (15:38)
[2022-06-08] MEDS ORDERED: hydrOXYzine PAMOATE 25 MG CAPSULE (FP) PO PRN (15:38)
[2022-06-08] MEDS ORDERED: P-EPHED 60MG/TRIPROLIDI 2.5MG TABLET PO PRN (15:38)
[2022-06-08] MEDS ORDERED: LOPERAMIDE HCL 2 MG CAPSULE PO PRN (15:38)
[2022-06-08] MEDS ORDERED: MAG HYDROX/AL HYDROX/SIMETH 30 ML UNIT-DOSE CUP PO PRN (15:38)
[2022-06-08] MEDS ORDERED: MAGNESIUM HYDROX 2400MG/30ML ORAL SUSPENSION 30 ML CUP PO PRN (15:38)
[2022-06-08] MEDS ORDERED: NALOXONE HCL (KLOXXADO) 8 MG SPRAY NS PRN (15:38)
[2022-06-08] MEDS: PRENATAL VITAMINS W/ FOLIC ACID TABLET (FP) PO SCH (15:59)
[2022-06-08] MEDS: NICOTINE 7 MG/24 HOURS TOPICAL PATCH TD SCH (15:59)
[2022-06-08] MEDS: MELATONIN 5 MG TABLETS PO SCH (22:26)
[2022-06-08] MEDS: OLANZapine 10 MG TABLET PO SCH (22:26)
[2022-06-08] MEDS: THIAMINE HCL 100 MG TABLET (FP) PO SCH (22:27)
[2022-06-09] MEDS ORDERED: methaDONE HCL 10 MG TABLET PO SCH (06:00)
[2022-06-09] MEDS: PRENATAL VITAMINS W/ FOLIC ACID TABLET (FP) PO SCH (10:50)
[2022-06-09] MEDS: NICOTINE 7 MG/24 HOURS TOPICAL PATCH TD SCH (10:50)
[2022-06-09] MEDS: FLUoxetine HCL 20 MG CAPSULE PO SCH (10:51)
[2022-06-09] MEDS: lamoTRIgine 25 MG TABLET PO SCH (10:51)
[2022-06-09 12:24] LABS: HEMATOCRIT 40.8 % (35.4-49); HEMOGLOBIN 13.7 GM/dL (11.7-16.9); MCH 30.2 pg (25.7-33.7); MCHC 33.6 g/dl (32.0-35.9); MEAN CELL VOLUME 89.9 fl (80-96); MEAN PLT VOLUME 8.8 fl (7.5-11.1); PLATELET COUNT 246 10^3/uL (134-434); RBC 4.54 M/mm3 (4.00-5.60); RDW 14.7 % (11.9-15.9); WHITE BLOOD COUNT 6.5 K/mm3 (4.0-10.0)
[2022-06-09 12:30] LABS: ALBUMIN 3.6 g/dl (3.4-5.0); BLOOD UREA NITROGEN 12.3 mg/dL (7-18); CALCIUM 9.5 mg/dL (8.5-10.1)
[2022-06-09 12:33] LABS: CREATININE 0.6 mg/dL (0.55-1.3)
[2022-06-09 12:35] LABS: BILIRUBIN,TOTAL 0.2 mg/dL (0.2-1)
[2022-06-09 16:01] LABS: SYPHILIS W/ RPR CONF NON-REACTIVE (NONREACTIVE)
[2022-06-09 17:05] LABS: URINE APPEARANCE CLEAR; URINE BILIRUBIN NEGATIVE (NEGATIVE); URINE COLOR YELLOW; URINE GLUCOSE (UA) NEGATIVE (NEGATIVE); URINE KETONE NEGATIVE (NEGATIVE); URINE LEUK ESTERASE NEGATIVE (NEGATIVE); URINE NITRITE NEGATIVE (NEGATIVE); URINE PROTEIN NEGATIVE (NEGATIVE); URINE UROBILINOGEN 0.2 mg/dL (0.2-1.0)
[2022-06-09] MEDS: MELATONIN 5 MG TABLETS PO SCH (22:07)
[2022-06-09] MEDS: THIAMINE HCL 100 MG TABLET (FP) PO SCH (22:07)
[2022-06-09] MEDS: OLANZapine 10 MG TABLET PO SCH (22:08)
[2022-06-10] MEDS: lamoTRIgine 25 MG TABLET PO SCH (10:47)
[2022-06-10] MEDS: FLUoxetine HCL 20 MG CAPSULE PO SCH (10:47)
[2022-06-10] MEDS: PRENATAL VITAMINS W/ FOLIC ACID TABLET (FP) PO SCH (10:47)
[2022-06-10] MEDS: NICOTINE 7 MG/24 HOURS TOPICAL PATCH TD SCH (10:47)
[2022-06-10] MEDS ORDERED: HYDROCORTISONE 1% TOPICAL CREAM 30 GM TUBE TP PRN (11:15)
[2022-06-10] MEDS: ACETAMINOPHEN 325 MG TABLET (FP) PO PRN (19:54)
[2022-06-10] MEDS: MELATONIN 5 MG TABLETS PO SCH (21:13)
[2022-06-10] MEDS: THIAMINE HCL 100 MG TABLET (FP) PO SCH (21:13)
[2022-06-10] MEDS: OLANZapine 10 MG TABLET PO SCH (21:13)
[2022-06-11] MEDS: ACETAMINOPHEN 325 MG TABLET (FP) PO PRN (08:42)
[2022-06-11] MEDS: FLUoxetine HCL 20 MG CAPSULE PO SCH (10:46)
[2022-06-11] MEDS: NICOTINE 7 MG/24 HOURS TOPICAL PATCH TD SCH (10:46)
[2022-06-11] MEDS: PRENATAL VITAMINS W/ FOLIC ACID TABLET (FP) PO SCH (10:46)
[2022-06-11] MEDS: lamoTRIgine 25 MG TABLET PO SCH (10:46)
[2022-06-11] MEDS: NICOTINE 10 MG CARTRIDGE (INHALER) IH PRN (10:48)
[2022-06-11] MEDS: IBUPROFEN 400 MG TABLET (FP) PO PRN (14:33)
[2022-06-11] MEDS: OLANZapine 10 MG TABLET PO SCH (21:17)
[2022-06-11] MEDS: THIAMINE HCL 100 MG TABLET (FP) PO SCH (21:18)
[2022-06-11] MEDS: MELATONIN 5 MG TABLETS PO SCH (21:18)
[2022-06-12] MEDS: PRENATAL VITAMINS W/ FOLIC ACID TABLET (FP) PO SCH (10:35)
[2022-06-12] MEDS: NICOTINE 7 MG/24 HOURS TOPICAL PATCH TD SCH (10:36)
[2022-06-12] MEDS: ACETAMINOPHEN 325 MG TABLET (FP) PO PRN ×2 (10:36→19:41)
[2022-06-12] MEDS: lamoTRIgine 25 MG TABLET PO SCH (10:36)
[2022-06-12] MEDS: FLUoxetine HCL 20 MG CAPSULE PO SCH (10:36)
[2022-06-12] MEDS: NICOTINE 10 MG CARTRIDGE (INHALER) IH PRN (10:37)
[2022-06-12] MEDS: BENZOCAINE 20 % GEL TUBE MM PRN (12:25)
[2022-06-12] MEDS: OLANZapine 10 MG TABLET PO SCH (21:16)
[2022-06-12] MEDS: MELATONIN 5 MG TABLETS PO SCH (21:16)
[2022-06-12] MEDS: THIAMINE HCL 100 MG TABLET (FP) PO SCH (21:16)
[2022-06-13] MEDS: FLUoxetine HCL 20 MG CAPSULE PO SCH (09:49)
[2022-06-13] MEDS: lamoTRIgine 25 MG TABLET PO SCH (09:49)
[2022-06-13] MEDS: NICOTINE 7 MG/24 HOURS TOPICAL PATCH TD SCH (09:49)
[2022-06-13] MEDS: PRENATAL VITAMINS W/ FOLIC ACID TABLET (FP) PO SCH (09:49)
[2022-06-13] MEDS: NICOTINE 10 MG CARTRIDGE (INHALER) IH PRN (09:50)
[2022-06-13] MEDS: ACETAMINOPHEN 325 MG TABLET (FP) PO PRN ×2 (12:22→21:46)
[2022-06-13] MEDS: MELATONIN 5 MG TABLETS PO SCH (21:46)
[2022-06-13] MEDS: THIAMINE HCL 100 MG TABLET (FP) PO SCH (21:46)
[2022-06-13] MEDS: OLANZapine 10 MG TABLET PO SCH (21:46)
[2022-06-14] MEDS: NICOTINE 10 MG CARTRIDGE (INHALER) IH PRN ×2 (06:01→21:05)
[2022-06-14] MEDS: PRENATAL VITAMINS W/ FOLIC ACID TABLET (FP) PO SCH (10:39)
[2022-06-14] MEDS: lamoTRIgine 25 MG TABLET PO SCH (10:39)
[2022-06-14] MEDS: NICOTINE 7 MG/24 HOURS TOPICAL PATCH TD SCH (10:39)
[2022-06-14] MEDS: FLUoxetine HCL 20 MG CAPSULE PO SCH (10:39)
[2022-06-14] MEDS: ACETAMINOPHEN 325 MG TABLET (FP) PO PRN (17:46)
[2022-06-14] MEDS: MELATONIN 5 MG TABLETS PO SCH (21:06)
[2022-06-14] MEDS: THIAMINE HCL 100 MG TABLET (FP) PO SCH (21:06)
[2022-06-14] MEDS: OLANZapine 10 MG TABLET PO SCH (21:06)
[2022-06-15] MEDS: NICOTINE 10 MG CARTRIDGE (INHALER) IH PRN ×3 (06:10→21:02)
[2022-06-15] MEDS: ACETAMINOPHEN 325 MG TABLET (FP) PO PRN ×2 (07:00→17:27)
[2022-06-15] MEDS: lamoTRIgine 25 MG TABLET PO SCH (10:12)
[2022-06-15] MEDS: FLUoxetine HCL 20 MG CAPSULE PO SCH (10:12)
[2022-06-15] MEDS: PRENATAL VITAMINS W/ FOLIC ACID TABLET (FP) PO SCH (10:13)
[2022-06-15] MEDS: NICOTINE 7 MG/24 HOURS TOPICAL PATCH TD SCH (10:13)
[2022-06-15] MEDS: BENZOCAINE 20 % GEL TUBE MM PRN (20:48)
[2022-06-15] MEDS: THIAMINE HCL 100 MG TABLET (FP) PO SCH (21:00)
[2022-06-15] MEDS: OLANZapine 10 MG TABLET PO SCH (21:00)
[2022-06-15] MEDS: MELATONIN 5 MG TABLETS PO SCH (21:01)
[2022-06-16] MEDS: NICOTINE 10 MG CARTRIDGE (INHALER) IH PRN ×3 (06:59→21:16)
[2022-06-16] MEDS: BENZOCAINE 20 % GEL TUBE MM PRN ×2 (07:01→21:16)
[2022-06-16] MEDS: ACETAMINOPHEN 325 MG TABLET (FP) PO PRN ×2 (08:33→23:21)
[2022-06-16] MEDS: PRENATAL VITAMINS W/ FOLIC ACID TABLET (FP) PO SCH (10:10)
[2022-06-16] MEDS: NICOTINE 7 MG/24 HOURS TOPICAL PATCH TD SCH (10:11)
[2022-06-16] MEDS: FLUoxetine HCL 20 MG CAPSULE PO SCH (10:11)
[2022-06-16] MEDS: lamoTRIgine 25 MG TABLET PO SCH (10:11)
[2022-06-16] MEDS: IBUPROFEN 400 MG TABLET (FP) PO PRN (15:54)
[2022-06-16] MEDS: THIAMINE HCL 100 MG TABLET (FP) PO SCH (21:15)
[2022-06-16] MEDS: MELATONIN 5 MG TABLETS PO SCH (21:15)
[2022-06-16] MEDS: OLANZapine 10 MG TABLET PO SCH (21:15)
[2022-06-17] MEDS: ACETAMINOPHEN 325 MG TABLET (FP) PO PRN ×2 (05:59→21:23)
[2022-06-17] MEDS: PRENATAL VITAMINS W/ FOLIC ACID TABLET (FP) PO SCH (10:08)
[2022-06-17] MEDS: lamoTRIgine 25 MG TABLET PO SCH (10:08)
[2022-06-17] MEDS: NICOTINE 7 MG/24 HOURS TOPICAL PATCH TD SCH (10:08)
[2022-06-17] MEDS: FLUoxetine HCL 20 MG CAPSULE PO SCH (10:08)
[2022-06-17] MEDS: NICOTINE 10 MG CARTRIDGE (INHALER) IH PRN ×2 (10:10→17:51)
[2022-06-17] MEDS: IBUPROFEN 400 MG TABLET (FP) PO PRN (12:22)
[2022-06-17] MEDS: BENZOCAINE 20 % GEL TUBE MM PRN ×2 (12:23→21:25)
[2022-06-17] MEDS: MELATONIN 5 MG TABLETS PO SCH (21:23)
[2022-06-17] MEDS: THIAMINE HCL 100 MG TABLET (FP) PO SCH (21:23)
[2022-06-17] MEDS: OLANZapine 10 MG TABLET PO SCH (21:47)
[2022-06-18] MEDS: IBUPROFEN 400 MG TABLET (FP) PO PRN ×3 (00:16→21:22)
[2022-06-18] MEDS: ACETAMINOPHEN 325 MG TABLET (FP) PO PRN ×2 (06:13→16:34)
[2022-06-18] MEDS: NICOTINE 10 MG CARTRIDGE (INHALER) IH PRN ×2 (06:16→13:33)
[2022-06-18] MEDS: PRENATAL VITAMINS W/ FOLIC ACID TABLET (FP) PO SCH (09:40)
[2022-06-18] MEDS: NICOTINE 7 MG/24 HOURS TOPICAL PATCH TD SCH (09:41)
[2022-06-18] MEDS: lamoTRIgine 25 MG TABLET PO SCH (09:41)
[2022-06-18] MEDS: FLUoxetine HCL 20 MG CAPSULE PO SCH (09:41)
[2022-06-18] MEDS: BENZOCAINE 20 % GEL TUBE MM PRN (16:35)
[2022-06-18] MEDS: THIAMINE HCL 100 MG TABLET (FP) PO SCH (21:23)
[2022-06-18] MEDS: OLANZapine 10 MG TABLET PO SCH (21:23)
[2022-06-18] MEDS: MELATONIN 5 MG TABLETS PO SCH (21:23)
[2022-06-19] MEDS: NICOTINE 10 MG CARTRIDGE (INHALER) IH PRN ×2 (05:49→21:20)
[2022-06-19] MEDS: IBUPROFEN 400 MG TABLET (FP) PO PRN ×2 (05:52→17:46)
[2022-06-19] MEDS: PRENATAL VITAMINS W/ FOLIC ACID TABLET (FP) PO SCH (09:52)
[2022-06-19] MEDS: FLUoxetine HCL 20 MG CAPSULE PO SCH (09:52)
[2022-06-19] MEDS: lamoTRIgine 25 MG TABLET PO SCH (09:52)
[2022-06-19] MEDS: NICOTINE 7 MG/24 HOURS TOPICAL PATCH TD SCH (09:53)
[2022-06-19] MEDS: THIAMINE HCL 100 MG TABLET (FP) PO SCH (21:20)
[2022-06-19] MEDS: OLANZapine 10 MG TABLET PO SCH (21:20)
[2022-06-19] MEDS: MELATONIN 5 MG TABLETS PO SCH (23:12)
[2022-06-20] MEDS: NICOTINE 10 MG CARTRIDGE (INHALER) IH PRN ×3 (06:00→21:26)
[2022-06-20] MEDS: IBUPROFEN 400 MG TABLET (FP) PO PRN ×2 (06:02→17:37)
[2022-06-20] MEDS: PRENATAL VITAMINS W/ FOLIC ACID TABLET (FP) PO SCH (09:49)
[2022-06-20] MEDS: NICOTINE 7 MG/24 HOURS TOPICAL PATCH TD SCH (09:49)
[2022-06-20] MEDS: FLUoxetine HCL 20 MG CAPSULE PO SCH (09:50)
[2022-06-20] MEDS: BENZOCAINE 20 % GEL TUBE MM PRN (09:51)
[2022-06-20] MEDS: lamoTRIgine 25 MG TABLET PO SCH (09:51)
[2022-06-20] MEDS: ACETAMINOPHEN 325 MG TABLET (FP) PO PRN (13:29)
[2022-06-20] MEDS: BACLOFEN 10 MG TABLET (FP) PO SCH (21:25)
[2022-06-20] MEDS: OLANZapine 10 MG TABLET PO SCH (21:25)
[2022-06-20] MEDS: MELATONIN 5 MG TABLETS PO SCH (21:25)
[2022-06-20] MEDS: THIAMINE HCL 100 MG TABLET (FP) PO SCH (21:25)
[2022-06-21] MEDS: IBUPROFEN 400 MG TABLET (FP) PO PRN ×2 (05:48→14:40)
[2022-06-21] MEDS: BACLOFEN 10 MG TABLET (FP) PO SCH ×3 (06:52→21:28)
[2022-06-21] MEDS: NICOTINE 10 MG CARTRIDGE (INHALER) IH PRN ×3 (08:33→18:31)
[2022-06-21] MEDS: NICOTINE 7 MG/24 HOURS TOPICAL PATCH TD SCH (09:41)
[2022-06-21] MEDS: PRENATAL VITAMINS W/ FOLIC ACID TABLET (FP) PO SCH (09:41)
[2022-06-21] MEDS: FLUoxetine HCL 20 MG CAPSULE PO SCH (09:43)
[2022-06-21] MEDS: BENZOCAINE 20 % GEL TUBE MM PRN (09:45)
[2022-06-21] MEDS: HYDROCORTISONE 0.5% TOPICAL CREAM 30 GM TUBE TP PRN (09:45)
[2022-06-21] MEDS: lamoTRIgine 25 MG TABLET PO SCH (10:41)
[2022-06-21] MEDS: THIAMINE HCL 100 MG TABLET (FP) PO SCH (21:28)
[2022-06-21] MEDS: OLANZapine 10 MG TABLET PO SCH (21:28)
[2022-06-21] MEDS: MELATONIN 5 MG TABLETS PO SCH (23:34)
[2022-06-22] MEDS: BACLOFEN 10 MG TABLET (FP) PO SCH ×3 (05:56→21:28)
[2022-06-22] MEDS: NICOTINE 10 MG CARTRIDGE (INHALER) IH PRN ×3 (05:57→17:44)
[2022-06-22] MEDS: IBUPROFEN 400 MG TABLET (FP) PO PRN ×3 (06:04→21:28)
[2022-06-22] MEDS: FLUoxetine HCL 20 MG CAPSULE PO SCH (09:43)
[2022-06-22] MEDS: PRENATAL VITAMINS W/ FOLIC ACID TABLET (FP) PO SCH (09:43)
[2022-06-22] MEDS: NICOTINE 7 MG/24 HOURS TOPICAL PATCH TD SCH (09:44)
[2022-06-22] MEDS: lamoTRIgine 25 MG TABLET PO SCH (09:44)
[2022-06-22] MEDS: BENZOCAINE 20 % GEL TUBE MM PRN (14:48)
[2022-06-22] MEDS: MELATONIN 5 MG TABLETS PO SCH (21:27)
[2022-06-22] MEDS: OLANZapine 10 MG TABLET PO SCH (21:28)
[2022-06-22] MEDS: THIAMINE HCL 100 MG TABLET (FP) PO SCH (21:28)
[2022-06-23] MEDS: IBUPROFEN 400 MG TABLET (FP) PO PRN ×2 (06:00→17:22)
[2022-06-23] MEDS: BACLOFEN 10 MG TABLET (FP) PO SCH ×3 (06:01→21:19)
[2022-06-23] MEDS: NICOTINE 10 MG CARTRIDGE (INHALER) IH PRN ×2 (06:04→12:16)
[2022-06-23] MEDS: lamoTRIgine 25 MG TABLET PO SCH (09:41)
[2022-06-23] MEDS: PRENATAL VITAMINS W/ FOLIC ACID TABLET (FP) PO SCH (09:41)
[2022-06-23] MEDS: NICOTINE 7 MG/24 HOURS TOPICAL PATCH TD SCH (09:42)
[2022-06-23] MEDS: FLUoxetine HCL 20 MG CAPSULE PO SCH (09:42)
[2022-06-23] MEDS: ACETAMINOPHEN 325 MG TABLET (FP) PO PRN (12:16)
[2022-06-23] MEDS: BENZOCAINE 20 % GEL TUBE MM PRN (15:48)
[2022-06-23] MEDS: MELATONIN 5 MG TABLETS PO SCH (21:19)
[2022-06-23] MEDS: OLANZapine 10 MG TABLET PO SCH (21:20)
[2022-06-23] MEDS: THIAMINE HCL 100 MG TABLET (FP) PO SCH (21:20)
[2022-06-24] MEDS: IBUPROFEN 400 MG TABLET (FP) PO PRN ×3 (02:46→21:32)
[2022-06-24] MEDS: BENZOCAINE 20 % GEL TUBE MM PRN ×4 (02:48→21:30)
[2022-06-24] MEDS: BACLOFEN 10 MG TABLET (FP) PO SCH ×3 (05:56→21:29)
[2022-06-24] MEDS: PRENATAL VITAMINS W/ FOLIC ACID TABLET (FP) PO SCH (09:49)
[2022-06-24] MEDS: lamoTRIgine 25 MG TABLET PO SCH (09:50)
[2022-06-24] MEDS: FLUoxetine HCL 20 MG CAPSULE PO SCH (09:51)
[2022-06-24] MEDS: ACETAMINOPHEN 325 MG TABLET (FP) PO PRN ×2 (09:52→16:50)
[2022-06-24] MEDS: NICOTINE 10 MG CARTRIDGE (INHALER) IH PRN ×2 (09:54→21:34)
[2022-06-24] MEDS: NICOTINE 7 MG/24 HOURS TOPICAL PATCH TD SCH (09:54)
[2022-06-24] MEDS: AMOXICILLIN 500 MG CAPSULE (FP) PO SCH ×2 (09:56→21:29)
[2022-06-24] MEDS: OLANZapine 10 MG TABLET PO SCH (21:29)
[2022-06-24] MEDS: THIAMINE HCL 100 MG TABLET (FP) PO SCH (21:29)
[2022-06-24] MEDS: MELATONIN 5 MG TABLETS PO SCH (21:33)
[2022-06-25] MEDS: BACLOFEN 10 MG TABLET (FP) PO SCH ×3 (05:46→21:32)
[2022-06-25] MEDS: IBUPROFEN 400 MG TABLET (FP) PO PRN ×2 (05:48→14:48)
[2022-06-25] MEDS: BENZOCAINE 20 % GEL TUBE MM PRN (05:50)
[2022-06-25] MEDS: NICOTINE 10 MG CARTRIDGE (INHALER) IH PRN ×3 (05:51→21:34)
[2022-06-25] MEDS: PRENATAL VITAMINS W/ FOLIC ACID TABLET (FP) PO SCH (09:52)
[2022-06-25] MEDS: FLUoxetine HCL 20 MG CAPSULE PO SCH (09:53)
[2022-06-25] MEDS: lamoTRIgine 25 MG TABLET PO SCH (09:53)
[2022-06-25] MEDS: AMOXICILLIN 500 MG CAPSULE (FP) PO SCH ×2 (09:53→21:32)
[2022-06-25] MEDS: NICOTINE 7 MG/24 HOURS TOPICAL PATCH TD SCH (09:54)
[2022-06-25] MEDS: OLANZapine 10 MG TABLET PO SCH (21:32)
[2022-06-25] MEDS: THIAMINE HCL 100 MG TABLET (FP) PO SCH (21:32)
[2022-06-25] MEDS: MELATONIN 5 MG TABLETS PO SCH (21:32)
[2022-06-25] MEDS: CHLORHEXIDINE GLUCONATE 0.12% 15ML CUP MM SCH (21:33)
[2022-06-26] MEDS: BACLOFEN 10 MG TABLET (FP) PO SCH ×3 (05:57→21:10)
[2022-06-26] MEDS: IBUPROFEN 400 MG TABLET (FP) PO PRN ×2 (05:58→18:19)
[2022-06-26] MEDS: FLUoxetine HCL 20 MG CAPSULE PO SCH (09:46)
[2022-06-26] MEDS: lamoTRIgine 25 MG TABLET PO SCH (09:46)
[2022-06-26] MEDS: AMOXICILLIN 500 MG CAPSULE (FP) PO SCH ×2 (09:46→21:10)
[2022-06-26] MEDS: NICOTINE 7 MG/24 HOURS TOPICAL PATCH TD SCH (09:47)
[2022-06-26] MEDS: PRENATAL VITAMINS W/ FOLIC ACID TABLET (FP) PO SCH (09:49)
[2022-06-26] MEDS: NICOTINE 10 MG CARTRIDGE (INHALER) IH PRN ×3 (09:52→22:34)
[2022-06-26] MEDS: CHLORHEXIDINE GLUCONATE 0.12% 15ML CUP MM SCH ×2 (10:06→21:13)
[2022-06-26] MEDS: MELATONIN 5 MG TABLETS PO SCH (21:10)
[2022-06-26] MEDS: THIAMINE HCL 100 MG TABLET (FP) PO SCH (21:10)
[2022-06-26] MEDS: OLANZapine 10 MG TABLET PO SCH (21:13)
[2022-06-27] MEDS: BACLOFEN 10 MG TABLET (FP) PO SCH ×3 (05:52→21:13)
[2022-06-27] MEDS: IBUPROFEN 400 MG TABLET (FP) PO PRN ×2 (05:52→16:44)
[2022-06-27] MEDS: NICOTINE 10 MG CARTRIDGE (INHALER) IH PRN ×3 (05:54→21:15)
[2022-06-27] MEDS: PRENATAL VITAMINS W/ FOLIC ACID TABLET (FP) PO SCH (09:38)
[2022-06-27] MEDS: NICOTINE 7 MG/24 HOURS TOPICAL PATCH TD SCH (09:38)
[2022-06-27] MEDS: FLUoxetine HCL 20 MG CAPSULE PO SCH (09:38)
[2022-06-27] MEDS: lamoTRIgine 25 MG TABLET PO SCH (09:38)
[2022-06-27] MEDS: AMOXICILLIN 500 MG CAPSULE (FP) PO SCH ×2 (09:38→21:13)
[2022-06-27] MEDS: CHLORHEXIDINE GLUCONATE 0.12% 15ML CUP MM SCH ×2 (09:40→21:15)
[2022-06-27] MEDS: MELATONIN 5 MG TABLETS PO SCH (21:12)
[2022-06-27] MEDS: THIAMINE HCL 100 MG TABLET (FP) PO SCH (21:13)
[2022-06-27] MEDS: OLANZapine 10 MG TABLET PO SCH (21:14)
[2022-06-28] MEDS: IBUPROFEN 400 MG TABLET (FP) PO PRN ×2 (04:54→17:26)
[2022-06-28] MEDS: NICOTINE 10 MG CARTRIDGE (INHALER) IH PRN ×3 (05:51→21:28)
[2022-06-28] MEDS: BACLOFEN 10 MG TABLET (FP) PO SCH ×3 (05:52→21:28)
[2022-06-28] MEDS: FLUoxetine HCL 20 MG CAPSULE PO SCH (09:31)
[2022-06-28] MEDS: lamoTRIgine 100 MG TABLET PO SCH (09:31)
[2022-06-28] MEDS: PRENATAL VITAMINS W/ FOLIC ACID TABLET (FP) PO SCH (09:31)
[2022-06-28] MEDS: AMOXICILLIN 500 MG CAPSULE (FP) PO SCH (09:31)
[2022-06-28] MEDS: NICOTINE 7 MG/24 HOURS TOPICAL PATCH TD SCH (09:31)
[2022-06-28] MEDS: HYDROCORTISONE 0.5% TOPICAL CREAM 30 GM TUBE TP PRN (09:32)
[2022-06-28] MEDS: CHLORHEXIDINE GLUCONATE 0.12% 15ML CUP MM SCH ×2 (09:34→21:28)
[2022-06-28] MEDS: THIAMINE HCL 100 MG TABLET (FP) PO SCH (21:27)
[2022-06-28] MEDS: MELATONIN 5 MG TABLETS PO SCH (21:27)
[2022-06-28] MEDS: OLANZapine 10 MG TABLET PO SCH (21:27)
[2022-06-29] MEDS: NICOTINE 10 MG CARTRIDGE (INHALER) IH PRN ×3 (04:40→18:52)
[2022-06-29] MEDS: IBUPROFEN 400 MG TABLET (FP) PO PRN ×2 (04:41→12:38)
[2022-06-29] MEDS: BACLOFEN 10 MG TABLET (FP) PO SCH ×3 (06:01→21:07)
[2022-06-29] MEDS: PRENATAL VITAMINS W/ FOLIC ACID TABLET (FP) PO SCH (09:38)
[2022-06-29] MEDS: FLUoxetine HCL 20 MG CAPSULE PO SCH (09:39)
[2022-06-29] MEDS: CHLORHEXIDINE GLUCONATE 0.12% 15ML CUP MM SCH ×2 (09:41→21:07)
[2022-06-29] MEDS: NICOTINE 7 MG/24 HOURS TOPICAL PATCH TD SCH (09:41)
[2022-06-29] MEDS: lamoTRIgine 100 MG TABLET PO SCH (10:58)
[2022-06-29] MEDS: MELATONIN 5 MG TABLETS PO SCH (21:07)
[2022-06-29] MEDS: THIAMINE HCL 100 MG TABLET (FP) PO SCH (21:07)
[2022-06-29] MEDS: OLANZapine 10 MG TABLET PO SCH (21:07)
[2022-06-30] MEDS: IBUPROFEN 400 MG TABLET (FP) PO PRN ×2 (04:21→13:32)
[2022-06-30] MEDS: BACLOFEN 10 MG TABLET (FP) PO SCH ×3 (05:58→21:06)
[2022-06-30] MEDS: NICOTINE 10 MG CARTRIDGE (INHALER) IH PRN ×3 (06:18→21:06)
[2022-06-30] MEDS: PRENATAL VITAMINS W/ FOLIC ACID TABLET (FP) PO SCH (09:33)
[2022-06-30] MEDS: FLUoxetine HCL 20 MG CAPSULE PO SCH (09:33)
[2022-06-30] MEDS: NICOTINE 7 MG/24 HOURS TOPICAL PATCH TD SCH (09:33)
[2022-06-30] MEDS: CHLORHEXIDINE GLUCONATE 0.12% 15ML CUP MM SCH ×2 (09:33→21:07)
[2022-06-30] MEDS: lamoTRIgine 100 MG TABLET PO SCH (09:33)
[2022-06-30] MEDS: OLANZapine 10 MG TABLET PO SCH (21:06)
[2022-06-30] MEDS: THIAMINE HCL 100 MG TABLET (FP) PO SCH (21:06)
[2022-06-30] MEDS: MELATONIN 5 MG TABLETS PO SCH (21:07)
[2022-07-01] MEDS: BACLOFEN 10 MG TABLET (FP) PO SCH ×3 (05:48→21:09)
[2022-07-01] MEDS: NICOTINE 10 MG CARTRIDGE (INHALER) IH PRN ×3 (05:51→21:11)
[2022-07-01] MEDS: IBUPROFEN 400 MG TABLET (FP) PO PRN ×2 (06:26→21:09)
[2022-07-01 07:10] VITALS: RESP 18
[2022-07-01] MEDS: PRENATAL VITAMINS W/ FOLIC ACID TABLET (FP) PO SCH (09:29)
[2022-07-01] MEDS: FLUoxetine HCL 20 MG CAPSULE PO SCH (09:29)
[2022-07-01] MEDS: CHLORHEXIDINE GLUCONATE 0.12% 15ML CUP MM SCH ×2 (09:29→21:11)
[2022-07-01] MEDS: lamoTRIgine 100 MG TABLET PO SCH (09:29)
[2022-07-01] MEDS: NICOTINE 7 MG/24 HOURS TOPICAL PATCH TD SCH (09:29)
[2022-07-01] MEDS: MELATONIN 5 MG TABLETS PO SCH (21:09)
[2022-07-01] MEDS: THIAMINE HCL 100 MG TABLET (FP) PO SCH (21:09)
[2022-07-01] MEDS: OLANZapine 10 MG TABLET PO SCH (21:09)
[2022-07-02] MEDS: NICOTINE 10 MG CARTRIDGE (INHALER) IH PRN ×3 (05:14→21:14)
[2022-07-02] MEDS: IBUPROFEN 400 MG TABLET (FP) PO PRN ×2 (05:17→14:25)
[2022-07-02] MEDS: BACLOFEN 10 MG TABLET (FP) PO SCH ×3 (05:55→21:13)
[2022-07-02] MEDS: FLUoxetine HCL 20 MG CAPSULE PO SCH (09:45)
[2022-07-02] MEDS: lamoTRIgine 100 MG TABLET PO SCH (09:45)
[2022-07-02] MEDS: NICOTINE 7 MG/24 HOURS TOPICAL PATCH TD SCH (09:45)
[2022-07-02] MEDS: PRENATAL VITAMINS W/ FOLIC ACID TABLET (FP) PO SCH (09:45)
[2022-07-02] MEDS: BENZOCAINE 20 % GEL TUBE MM PRN (21:13)
[2022-07-02] MEDS: THIAMINE HCL 100 MG TABLET (FP) PO SCH (21:13)
[2022-07-02] MEDS: MELATONIN 5 MG TABLETS PO SCH (21:13)
[2022-07-02] MEDS: OLANZapine 10 MG TABLET PO SCH (21:13)
[2022-07-03] MEDS: IBUPROFEN 400 MG TABLET (FP) PO PRN ×2 (06:08→21:08)
[2022-07-03] MEDS: BACLOFEN 10 MG TABLET (FP) PO SCH ×3 (06:09→21:07)
[2022-07-03] MEDS: NICOTINE 10 MG CARTRIDGE (INHALER) IH PRN ×3 (06:10→21:09)
[2022-07-03 07:37] VITALS: TEMP 98.2
[2022-07-03] MEDS: NICOTINE 7 MG/24 HOURS TOPICAL PATCH TD SCH (09:36)
[2022-07-03] MEDS: lamoTRIgine 100 MG TABLET PO SCH (09:36)
[2022-07-03] MEDS: PRENATAL VITAMINS W/ FOLIC ACID TABLET (FP) PO SCH (09:36)
[2022-07-03] MEDS: FLUoxetine HCL 20 MG CAPSULE PO SCH (09:36)
[2022-07-03] MEDS: MELATONIN 5 MG TABLETS PO SCH (21:06)
[2022-07-03] MEDS: OLANZapine 10 MG TABLET PO SCH (21:07)
[2022-07-03] MEDS: THIAMINE HCL 100 MG TABLET (FP) PO SCH (21:07)
[2022-07-04] MEDS: BACLOFEN 10 MG TABLET (FP) PO SCH (05:53)
[2022-07-04] MEDS: IBUPROFEN 400 MG TABLET (FP) PO PRN (05:53)
[2022-07-04] MEDS: NICOTINE 10 MG CARTRIDGE (INHALER) IH PRN (05:53)
[2022-07-04 07:17] VITALS: BP 105/60; PULSE 80
[2022-07-04] MEDS: FLUoxetine HCL 20 MG CAPSULE PO SCH (09:37)
[2022-07-04] MEDS: lamoTRIgine 100 MG TABLET PO SCH (09:37)
[2022-07-04] MEDS: PRENATAL VITAMINS W/ FOLIC ACID TABLET (FP) PO SCH (09:38)
[2022-07-04] MEDS: NICOTINE 7 MG/24 HOURS TOPICAL PATCH TD SCH (09:38)
[2022-07-04] MEDS ORDERED: FLUoxetine HCL 20 MG CAPSULE PO SCH (10:00)
== END 2022-07-04 10:45 | disposition home or self-care (01) | DRG 772 ==
LOC: YASAS 12:45 → Y5N 12:46
PROVIDERS: ADMIT Allergy & Immunology; ATTEND Psychiatry & Neurology Pain Medicine
PROC: HZ42ZZZ Group Counseling for Substance Abuse Treatment, Cognitive-Behavioral (ICD-10-PCS; principal; 2022-06-08)
DX: F10.20 Alcohol dependence, uncomplicated (principal); F11.20 Opioid dependence, uncomplicated; F14.20 Cocaine dependence, uncomplicated; F13.20 Sedative, hypnotic or anxiolytic dependence, uncomplicated; F17.210 Nicotine dependence, cigarettes, uncomplicated; F31.9 Bipolar disorder, unspecified; F19.24 Other psychoactive substance dependence with psychoactive substance-induced mood disorder; F39 Unspecified mood [affective] disorder; K02.9 Dental caries, unspecified; K04.7 Periapical abscess without sinus; L85.3 Xerosis cutis
CPT/HCPCS: 36415; 80053; 81003; 85027; 86780; 86803; 87522; J0475